=== PATIENT | female | born 1950 | race African-American/Black ===

== ENCOUNTER 2019-05-21 21:22 | Inpatient (IN) | payer MEDICARE, MEDICAID ==
[~2019-05-21] VITALS: Ht 152.4 cm; Wt 51.3 kg
--- NOTE | 2019-05-21 21:40 | NUR ---
ED Nurse Note: ERMD at bedside
[2019-05-21] MEDS ORDERED: Piperacillin/Tazobactam 3.375 GM in NS 110 ML IVPB ONE (22:00)
[2019-05-21] MEDS ORDERED: Vancomycin 1 GM in NS 275 ML IV ONE (22:00)
[2019-05-21] MEDS ORDERED: Bacitracin Oint UD TOPIC ONE (22:00)
[2019-05-21] MEDS: Sodium Chloride 550 ML IV SCH (22:05)
[2019-05-21 22:25] LABS: HEMATOCRIT 31.2 % (37.0-47.0); HEMOGLOBIN 9.8 G/DL (12.0-16.0); MEAN CORPUSCULAR VOLUME 100 FL (80-99); PLATELET COUNT 41 K/UL (150-450); RED BLOOD COUNT 3.11 M/UL (4.20-5.40); RED CELL DISTRIBUTION WIDTH 17.3 % (11.6-14.8); WHITE BLOOD COUNT 3.5 K/UL (4.8-10.8)
[2019-05-21 22:28] LABS: ANION GAP 9 mmol/L (5-15); BLOOD UREA NITROGEN 9 mg/dL (7-18); CALCIUM 8.7 MG/DL (8.5-10.1); CARBON DIOXIDE 26 MMOL/L (21-32); CHLORIDE 102 MMOL/L (98-107); CREATININE 0.7 MG/DL (0.55-1.30); POTASSIUM 3.5 MMOL/L (3.5-5.1); SODIUM 137 MMOL/L (136-145)
[2019-05-21 22:29] LABS: INR 1.2 (0.9-1.1)
[2019-05-21 22:40] LABS: ALANINE AMINOTRANSFERASE 35 U/L (12-78); ALBUMIN 2.9 G/DL (3.4-5.0); ALBUMIN/GLOBULIN RATIO 0.6 (1.0-2.7); ALKALINE PHOSPHATASE 73 U/L (46-116); ASPARTATE AMINO TRANSFERASE 51 U/L (15-37); BILIRUBIN,TOTAL 2.8 MG/DL (0.2-1.0); CKMB < 0.5 NG/ML (0.0-3.6); CREATINE KINASE 20 U/L (26-308); PHOSPHORUS 2.8 MG/DL (2.5-4.9)
[2019-05-21 22:41] LABS: BILIRUBIN,DIRECT 2.1 MG/DL (0.0-0.3)
--- NOTE | 2019-05-21 22:51 | Emergency Room Report ---
History of Present Illness General Chief Complaint: Lower Extremity Injury Source: Patient Present Illness HPI Patient is brought her daughter. She was seen by her doctor yesterday. She was told that she has a ulcer and infection in her lower extremity. The patient claims she banged herself a week ago. Her physician believes that happened longer than that. The patient denies most symptoms at this time. She has a history of alcohol abuse. She says that she last was drinking yesterday. She says she drinks beer. She denies fevers or chills. She denies any pain in the area. She denies pain. No sore throat, chest pain, palpitations, nausea, vomiting, diarrhea, dysuria, abdominal pain, shortness of breath, depression, anxiety, visual changes, dizziness, headache. The patient has a history of arthritis and hypertension but is not taking any medication. Allergies: Coded Allergies: No Known Allergies (Unverified , 05/21/19) Patient History Past Medical History: see triage record Social History: Reports: alcohol use; Denies: smoking Social History Narrative born Emmanuelle Last Menstrual Period: na Reviewed Nursing Documentation: PMH: Agreed; PSxH: Agreed Nursing Documentation-PMH Past Medical History: No History, Except For Hx Cardiac Problems: No - Arthritis Hx Hypertension: Yes Review of Systems All Other Systems: negative except mentioned in HPI Physical Exam Vital Signs Date Time Temp Pulse Resp B/P (MAP) Pulse Ox O2 Delivery O2 Flow Rate FiO2 05/21/19 21:31 98.1 106 18 184/98 (126) 97 Room Air Sp02 EP Interpretation: reviewed, normal General Appearance: non-toxic, thin, Chronically Ill Head: atraumatic Eyes: bilateral eye normal inspection, bilateral eye PERRL ENT: moist mucus membranes Neck: supple Respiratory: lungs clear, normal breath sounds Cardiovascular #1: regular rate, rhythm, edema - 2+ pitting edema bilaterally Cardiovascular #2: 2+ radial (R) Gastrointestinal: normal inspection, non tender, no mass, non-distended, decreased bowel sounds Genitourinary: no CVA tenderness Musculoskeletal: back normal, normal range of motion, no calf tenderness, gait/ station normal Neurologic: alert, oriented - X2, DTRs symmetric, sensory intact, cerebellar normal, speech normal Psychiatric: mood/affect normal Skin: other - Erythema bilateral lower extremities worse on the left-hand side with an abrasion Medical Decision Making Diagnostic Impression: Primary Impression: Cellulitis Qualified Codes: L03.119 - Cellulitis of unspecified part of limb Additional Impressions: Sepsis Qualified Codes: A41.9 - Sepsis, unspecified organism Protein calorie malnutrition Qualified Codes: E43 - Unspecified severe protein-calorie malnutrition Hypomagnesemia Elevated INR Alcohol abuse ER Course Patient presents with lesions in her lower extremities and edema. Differential includes cellulitis, sepsis, malnutrition, renal failure, right-sided heart failure amongst others. We need to exclude acute myocardial infarction. Evaluation with EKG, chest x-ray and labs including blood cultures and lactic acid. Patient given IV hydration however due to total body sodium overload volume replacement needs to be observed judiciously. Antibiotics indicated. Suspect sequela of alcohol abuse. Patient needs to be observed for possible alcohol withdrawal. EKG without injury. Chest x-ray no infiltrate. Normal white count. Anemia. Variable liver function test abnormalities. Elevated INR. Blood alcohol positive. SEPSIS RE-EVALUATION: Called for elevated lactate. Patient with fluid overload. Liver disease. Antibiotics already ordered. Initial bolus and continued IV hydration is in process. I, Johnny Kirkland MD, Performed the Sepsis Re-evaluation at 22:50. Repeat lactate normal. Vitamin K ordered for elevated INR. Magnesium ordered. Patient improved but needing admission for cellulitis and sepsis with liver dysfunction. Laboratory Tests Test 05/21/19 21:40 05/21/19 23:45 White Blood Count 3.5 K/UL (4.8-10.8) L Red Blood Count 3.11 M/UL (4.20-5.40) L Hemoglobin 9.8 G/DL (12.0-16.0) L Hematocrit 31.2 % (37.0-47.0) L Mean Corpuscular Volume 100 FL (80-99) H Mean Corpuscular Hemoglobin 31.6 PG (27.0-31.0) H Mean Corpuscular Hemoglobin Concent 31.5 G/DL (32.0-36.0) L Red Cell Distribution Width 17.3 % (11.6-14.8) H Platelet Count 41 K/UL (150-450) L Mean Platelet Volume 13.0 FL (6.5-10.1) H Neutrophils (%) (Auto) % (45.0-75.0) Lymphocytes (%) (Auto) % (20.0-45.0) Monocytes (%) (Auto) % (1.0-10.0) Eosinophils (%) (Auto) % (0.0-3.0) Basophils (%) (Auto) % (0.0-2.0) Differential Total Cells Counted 100 Neutrophils % (Manual) 62 % (45-75) Lymphocytes % (Manual) 20 % (20-45) Monocytes % (Manual) 16 % (1-10) H Eosinophils % (Manual) 1 % (0-3) Basophils % (Manual) 1 % (0-2) Band Neutrophils 0 % (0-8) Platelet Estimate Decreased L Platelet Morphology Normal Polychromasia 1+ Hypochromasia 1+ Anisocytosis 1+ Macrocytosis 2+ Prothrombin Time 12.3 SEC (9.30-11.50) H Prothrombin Time INR 1.2 (0.9-1.1) H Activated Partial Thromboplast Time 29 SEC (23-33) Sodium Level 137 MMOL/L (136-145) Potassium Level 3.5 MMOL/L (3.5-5.1) Chloride Level 102 MMOL/L (98-107) Carbon Dioxide Level 26 MMOL/L (21-32) Anion Gap 9 mmol/L (5-15) Blood Urea Nitrogen 9 mg/dL (7-18) Creatinine 0.7 MG/DL (0.55-1.30) Estimate Glomerular Filtration Rate > 60 mL/min (>60) Glucose Level 98 MG/DL (74-106) Lactic Acid Level 2.40 mmol/L (0.4-2.0) H 1.70 mmol/L (0.66-2.22) Calcium Level 8.7 MG/DL (8.5-10.1) Phosphorus Level 2.8 MG/DL (2.5-4.9) Magnesium Level 1.6 MG/DL (1.8-2.4) L Total Bilirubin 2.8 MG/DL (0.2-1.0) H Direct Bilirubin 2.1 MG/DL (0.0-0.3) H Aspartate Amino Transferase (AST) 51 U/L (15-37) H Alanine Aminotransferase (ALT) 35 U/L (12-78) Alkaline Phosphatase 73 U/L (46-116) Total Creatine Kinase 20 U/L (26-308) L Creatine Kinase MB < 0.5 NG/ML (0.0-3.6) Creatine Kinase MB Relative Index 2.5 Troponin I 0.000 ng/mL (0.000-0.056) Pro-B-Type Natriuretic Peptide 589 pg/mL (0-125) H Total Protein 7.9 G/DL (6.4-8.2) Albumin 2.9 G/DL (3.4-5.0) L Globulin 5.0 g/dL Albumin/Globulin Ratio 0.6 (1.0-2.7) L Lipase 175 U/L (73-393) Serum Alcohol 10 mg/dL EKG Diagnostic Results Rate: tachycardiac Rhythm: NSR ST Segments: no acute changes - LAD, prolonged QT 497 ms Rhythm Strip Diag. Results EP Interpretation: yes Rhythm: no PVC's, no ectopy, other - This tachycardia Chest X-Ray Diagnostic Results Chest X-Ray Diagnostic Results : Chest X-Ray Ordered: Yes # of Views/Limited/Complete: 1 View Indication: Other EP Interpretation: Yes Interpretation: no consolidation, no effusion, no pneumothorax, other - Noted calcifications Impression: No acute disease Electronically Signed by: Electronically signed by Johnny Kirkland MD Last Vital Signs Date Time Temp Pulse Resp B/P (MAP) Pulse Ox O2 Delivery O2 Flow Rate FiO2 05/22/19 08:01 85 05/22/19 08:00 97.5 18 153/67 (95) 98 05/22/19 03:36 Room Air Status: improved Disposition: ADMITTED INPATIENT Condition: Serious Referrals: NON PHYSICIAN (PCP) Johnny Kirkland MD May 21, 2019 22:51
--- NOTE | 2019-05-21 23:59 | NUR ---
ED Nurse Note: Patient walked in to ER c/o lower leg pain. Stated hited it the other day, and ever since has pain, and open wound on left lower leg. Patient presented calm, cooperative, AAO x4, VSS at this time.
[2019-05-22] MEDS ORDERED: Phytonadione 10 mg/mL 1ml amp SUBQ ONE (00:45)
[2019-05-22] MEDS: Sodium Chloride 550 ML IV SCH (01:55)
--- NOTE | 2019-05-22 02:30 | NUR ---
ED Nurse Note: Patient was admited to Tele due to cellulitis of lower extremities. Patient was transfered to the unit via gurney by ACLS protocol. Patient took all belongings. AAO x4, VSS at this time.
[2019-05-22 03:00] VITALS: BP 148/82
--- NOTE | 2019-05-22 03:00 | NUR ---
NURSE NOTES: Pt arrived on unit via gurney from ER. Got report from Jade ALBERTS. Initial assessment done. Pt in stable condition.Pt fully oriented. Pt ambulatory but weak SBA needed. Pt continent and able to make needs known. Pt here for bilateral lower extremity cellulitis. Denies any pain. Denies any n/v or SOB. Pt has left lower leg wound picture taken. VSS T:97 HR:86 R:17 BP:148/82 O2:97% on room air. Pt has R AC 20g iv patent. injection mold tooling technician placed on pt running Sinus Rhythm on the monitor. Belongings list verified. Pt resting in bed comfortably. Bed in low and locked position, call light within reach, bedside table within reach. Continue to monitor. Paged Dr. Law for orders awaiting response.
[2019-05-22 03:11] LABS: APPEARANCE,URINE CLEAR; BILIRUBIN, URINE NEGATIVE (NEGATIVE); GLUCOSE, URINE (UA) NEGATIVE (NEGATIVE); KETONES,URINE NEGATIVE (NEGATIVE); LEUKOCYTE ESTERASE ,URINE 1+ (NEGATIVE); NITRITE,URINE NEGATIVE (NEGATIVE); PH,URINE 6.5 (4.5-8.0); PROTEIN,URINE NEGATIVE (NEGATIVE); UROBILINOGEN,URINE 4 MG/DL (0.0-1.0)
[2019-05-22 03:12] LABS: COLOR,URINE YELLOW
--- NOTE | 2019-05-22 07:30 | NUR ---
NURSE NOTES: Received report from LEXUS Sánchez. Patient is A/Ox4. Breathing even and unlabored in RA. No complain of pain in BLE, complains of discomfort in IV site, no swelling noted. No s/s of acute distress. Bed on lowest position, call light within reach. Will continue plan of care.
--- NOTE | 2019-05-22 07:45 | NUR ---
HAND-OFF: Report given to Molly ALBERTS.
[2019-05-22 08:00] VITALS: BP 153/67
[2019-05-22] MEDS ORDERED: Heparin 5000 units/ml inj SUBQ SCH (09:00)
[2019-05-22 09:07] LABS: HEMATOCRIT 25.9 % (37.0-47.0); HEMOGLOBIN 8.9 G/DL (12.0-16.0); MEAN CORPUSCULAR VOLUME 94 FL (80-99); PLATELET COUNT 34 K/UL (150-450); RED BLOOD COUNT 2.75 M/UL (4.20-5.40); RED CELL DISTRIBUTION WIDTH 16.1 % (11.6-14.8); WHITE BLOOD COUNT 2.9 K/UL (4.8-10.8)
[2019-05-22 09:19] LABS: ANION GAP 5 mmol/L (5-15); BLOOD UREA NITROGEN 8 mg/dL (7-18); CALCIUM 8.3 MG/DL (8.5-10.1); CARBON DIOXIDE 27 MMOL/L (21-32); CHLORIDE 108 MMOL/L (98-107); CREATININE 0.7 MG/DL (0.55-1.30); POTASSIUM 3.6 MMOL/L (3.5-5.1); SODIUM 140 MMOL/L (136-145)
[2019-05-22 09:21] LABS: PHOSPHORUS 3.6 MG/DL (2.5-4.9)
[2019-05-22] MEDS: Vancomycin 500mg/D5W 110ml IVPB SCH ×4 (10:52→23:31)
--- NOTE | 2019-05-22 11:24 | NUR ---
NURSE NOTES: Informed Dr Law regarding the pt's WBC 2.9, platelet 34, Hgb 8.9, Hct 25.9
--- NOTE | 2019-05-22 11:32 | Diagnostic Imaging Report ---
Indication: Chest pain Comparison: None A single view chest radiograph was obtained. Findings: No definite infiltrate or pulmonary vascular congestion identified. The heart is borderline enlarged. The aorta is mildly calcified consistent with atherosclerotic vascular disease. The bones are osteopenic. Impression: No acute disease
[2019-05-22 12:00] VITALS: BP 138/64
--- NOTE | 2019-05-22 13:10 | NUR ---
CASE MANAGEMENT:REVIEW 69 YR OLD FEMALE WALKED IN TO ER CC: LLE OPEN WOUND SI: SEPSIS. CELLULITIS. ALCOHOL ABUSE 98.1 106 18 184/98 97% ON RA PLT-41 MAG-1.6 TBILI/DBILI+2.8/2.1 IS: IV VANCOMYCIN IV ZOSYN 1L NS BOLUS 500CC NS BOLUS CHEST XRAY WOUND CX BLOOD CX : TO TELEMETRY DCP: FROM HOME
[2019-05-22 16:00] VITALS: BP 155/72
--- NOTE | 2019-05-22 19:30 | History and Physical Report ---
DATE OF ADMISSION: 05/21/2019 CHIEF COMPLAINT: Left lower extremity redness and ulcer. HISTORY OF PRESENT ILLNESS: This is a 69 years old female with past medical history significant for hypertension, who presented to the emergency department due to the complaint about the left lower extremity ulcer and infected. The patient stated while she was in the kitchen walking and she struck her foot and after that becomes red, tender, able to walk, but had difficulty with ambulation. Shortly after initial evaluation in the emergency department, the patient was admitted to the hospital with acute cellulitis of the left lower extremity. PAST MEDICAL HISTORY: Significant for hypertension, history is very limited secondary to the patient's status. She is demented, poor historian. History is taken from the patient, unable to reach the family to get a better history at this time. PAST SURGICAL HISTORY: Denies. MEDICATIONS: At home, unknown. ALLERGIES: No known drug allergies. SOCIAL HISTORY: Denies any smoking, alcohol, or drugs. FAMILY HISTORY: Noncontributory. REVIEW OF SYSTEMS: Mostly as above. Denies any fever or chills. Denies any nausea or vomiting. Denies any hemoptysis or hematochezia. Denies any bright red blood per rectum. Denies any loss of consciousness. Denies any double vision. Denies any fall or head trauma. PHYSICAL EXAMINATION: VITAL SIGNS: On admission from the ER, temperature 98.1, pulse of 106, respirations 18, and blood pressure 184/98. GENERAL: The patient is awake, responsive, in no acute distress. HEENT: Head and neck examination, pupils are reactive to light. Extraocular movements are intact. NECK: Supple. No JVD. LUNGS: Good air entry. No wheezing or rales. HEART: S1, S2. Distant heart sounds. No murmurs or gallops. ABDOMEN: Soft, nondistended, nontender. Positive bowel sounds. EXTREMITIES: No cyanosis, clubbing, or edema. The patient has left lower extremity redness, ulceration on the medial aspect of the leg. Mild tender to touch around the ulcer. RECTAL: Refused and deferred. GENITOURINARY: Refused and deferred. PSYCHIATRIC: Mood and affect is intact. LABORATORY AND DIAGNOSTIC DATA: Laboratory on admission from the emergency department, sodium 134, potassium 3.5, chloride 102, bicarbonate 26, BUN 9, creatinine 0.7, GFR is 60, glucose 98, magnesium is 1.6. Total bilirubin of 2.8 and direct bilirubin of the 2.1. AST is 51, ALT of 35, and alkaline phosphatase 73. BNP of 589. Lipase is 187. PT of 12, INR 1.2, and PTT of 29. Urine drug screen is negative. Alcohol level is negative. Urinalysis, +1 leukocytes, otherwise negative. The patient had a chest x-ray, no acute process. ASSESSMENT: 1. Cellulitis of the left lower extremity with ulceration. 2. Hypertension. 3. Abnormal liver functions. 4. Pancytopenia with severe thrombocytopenia. 5. Severe protein-calorie malnutrition. PLAN: Admit the patient to monitored unit. We will follow up with the laboratory in the morning. Code status, Full Code. magnesium IV. DVT prophylaxis, SCD. Broad-spectrum antibiotic with vancomycin. Follow up with the GI consultation with Dr. Jeremy Ramos and we will follow up with the cultures. Italo Law M.D. DR: SERJIO JOB#: [id number] CC:
--- NOTE | 2019-05-22 19:37 | NUR ---
HAND-OFF: Report given to LEXUS Taylor. Pt in stable condition. Endorsed plan of care.
[2019-05-22] MEDS: HYDROcodone/Acetamin 5/325 tab ORAL PRN (19:50)
[2019-05-22 20:00] VITALS: BP 128/68
--- NOTE | 2019-05-22 20:27 | NUR ---
NURSE NOTES: Report received from Molly LABERTS. Patient is observed in bed, awake, alert, oriented, and able to make needs known. Respiratory even and unlabored. Patient states relief of pain. IV site is asymptomatic, patent, and intact. Bed is in lowest position with side rails up x2 and brakes are engaged. Bed alarm is on. Encouraged patient to use call light when in need of assistance, pt verbalized understanding. Will continue to monitor.
--- NOTE | 2019-05-23 | NUR ---
NURSE NOTES: Patient is asleep but arousable by voice. Denies pain at this time. VSS. Will continue to monitor.
[2019-05-23 00:11] VITALS: BP 141/67
[2019-05-23 04:00] VITALS: BP 110/52
--- NOTE | 2019-05-23 07:00 | NUR ---
HAND-OFF: Report given to Molly ALBERTS. Patient is in stable condition. Endorsed plan of care.
[2019-05-23 07:16] LABS: HEMATOCRIT 25.5 % (37.0-47.0); HEMOGLOBIN 8.5 G/DL (12.0-16.0); MEAN CORPUSCULAR VOLUME 95 FL (80-99); PLATELET COUNT 27 K/UL (150-450); RED BLOOD COUNT 2.67 M/UL (4.20-5.40); RED CELL DISTRIBUTION WIDTH 16.3 % (11.6-14.8); WHITE BLOOD COUNT 2.7 K/UL (4.8-10.8)
--- NOTE | 2019-05-23 07:33 | NUR ---
NURSE NOTES: Received report from LEXUS Taylor. Pt is awake, A/Ox4. Pt denies any pain at the moment, no s/sx of acute distress. Pt on NPO for abd u/s this AM. Stand-by assist when pt went to restroom. Breathing even and unlabored in RA. Bed on lowest position, call light within reach. Will continue plan of care.
[2019-05-23 07:46] LABS: ANION GAP 6 mmol/L (5-15); BLOOD UREA NITROGEN 10 mg/dL (7-18); CALCIUM 8.1 MG/DL (8.5-10.1); CARBON DIOXIDE 26 MMOL/L (21-32); CHLORIDE 108 MMOL/L (98-107); CREATININE 0.6 MG/DL (0.55-1.30); PHOSPHORUS 2.6 MG/DL (2.5-4.9); POTASSIUM 3.7 MMOL/L (3.5-5.1); SODIUM 140 MMOL/L (136-145)
[2019-05-23 08:00] VITALS: BP 132/56
[2019-05-23] MEDS: Aspirin EC 81mg tab ORAL SCH (09:28)
--- NOTE | 2019-05-23 09:37 | NUR ---
NURSE NOTES: Reported labs to Dr Law. wbc 2.7, platelet 27, hgb 8.5, hct 25.5, mg 1.7 ordered Mg Oxide 400mg PO daily.
[2019-05-23] MEDS: Magnesium Oxide 400mg tab ORAL SCH (10:43)
[2019-05-23] MEDS: Vancomycin 500mg/D5W 110ml IVPB SCH ×2 (10:44)
--- NOTE | 2019-05-23 11:13 | Diagnostic Imaging Report ---
EXAM: US Abdomen Complete CLINICAL HISTORY: ABD TEND TECHNIQUE: Real-time ultrasound of the abdomen with image documentation. COMPARISON: No relevant prior studies available. FINDINGS: Liver: Dense liver may be fatty. Liver measures 12.67 cm. No intrahepatic bile duct dilation. Gallbladder: Gallbladder with sludge and stones. Gallbladder wall is normal 1.14 mm. Common bile duct: CBD 3.29 mm. No stones. No dilation. Pancreas: Pancreas tail not seen due to bowel gas. Kidneys: 2.52 x 1.96 x 2.83 cm anechoic left renal cyst. Right kidney measures 10.56 x 4.58 x 5.03 cm. Prominent column for Reji versus duplex collecting system. Left kidney measures 11.4 x 5.24 x 4.21 cm. No stones. Spleen: Spleen measures 9.9 cm. Aorta: Aorta not well-seen due to bowel gas. Inferior vena cava: Unremarkable. IMPRESSION: 1. Dense liver may be fatty. 2. Gallbladder with sludge and stones. No acute cholecystitis. 3. 2.52 x 1.96 x 2.83 cm anechoic left renal cyst.
[2019-05-23 12:00] VITALS: BP 135/59
--- NOTE | 2019-05-23 14:02 | Internal Med Progress Note ---
Subjective Date of Service: May 23, 2019 Physician Name Ty Moulton Attending Physician Italo Law MD Current Medications Medications (Trade) Dose Ordered Sig/Surinder Route PRN Reason Start Time Stop Time Status Last Admin Dose Admin Acetaminophen (Tylenol) 650 mg Q6H PRN ORAL Mild Pain/Temp > 100.5 05/22/19 07:00 06/21/19 06:59 Acetaminophen/ Hydrocodone Bitart ([place] 5/325) 1 tab Q6H PRN ORAL PAIN 4-10 05/22/19 07:00 05/29/19 06:59 05/22/19 19:50 Amlodipine Besylate (Norvasc) 2.5 mg DAILY ORAL 05/23/19 09:00 06/22/19 08:59 05/23/19 09:28 Aspirin (Ecotrin) 81 mg DAILY ORAL 05/23/19 09:00 06/22/19 08:59 05/23/19 09:28 Magnesium Oxide (Mag-Ox 400mg) 400 mg DAILY ORAL 05/23/19 10:30 06/22/19 10:29 05/23/19 10:43 Ondansetron HCl (Zofran) 4 mg Q4H PRN IVP Nausea & Vomiting 05/22/19 07:00 06/21/19 06:59 Temazepam (RestoriL) 7.5 mg HSPRN PRN ORAL Insomnia 05/22/19 15:45 05/29/19 15:44 Vancomycin HCl (Vanco rx to dose) 1 ea DAILY PRN MISC Per rx protocol 05/22/19 07:00 06/21/19 06:59 Vancomycin HCl 500 mg/Dextrose 110 ml @ 110 mls/hr Q12HR@1100,2300 IVPB 05/22/19 11:00 05/27/19 10:59 05/23/19 10:44 Allergies: Coded Allergies: No Known Allergies (Unverified , 05/21/19) ROS Limited/Unobtainable: Yes Subjective 69 YO F admitted with left let swelling and redness. Now Cellulitis left leg with ulcer. Cover for Int Darren-DR Law Objective Last Vital Signs Date Time Temp Pulse Resp B/P (MAP) Pulse Ox O2 Delivery O2 Flow Rate FiO2 05/23/19 09:28 76 132/56 05/23/19 08:08 Room Air 05/23/19 08:00 98.1 16 99 Laboratory Tests Test 05/23/19 06:50 White Blood Count 2.7 K/UL (4.8-10.8) L Red Blood Count 2.67 M/UL (4.20-5.40) L Hemoglobin 8.5 G/DL (12.0-16.0) L Hematocrit 25.5 % (37.0-47.0) L Mean Corpuscular Volume 95 FL (80-99) Mean Corpuscular Hemoglobin 31.9 PG (27.0-31.0) H Mean Corpuscular Hemoglobin Concent 33.4 G/DL (32.0-36.0) Red Cell Distribution Width 16.3 % (11.6-14.8) H Platelet Count 27 K/UL (150-450) L Mean Platelet Volume 9.0 FL (6.5-10.1) Neutrophils (%) (Auto) % (45.0-75.0) Lymphocytes (%) (Auto) % (20.0-45.0) Monocytes (%) (Auto) % (1.0-10.0) Eosinophils (%) (Auto) % (0.0-3.0) Basophils (%) (Auto) % (0.0-2.0) Differential Total Cells Counted 100 Neutrophils % (Manual) 61 % (45-75) Lymphocytes % (Manual) 32 % (20-45) Monocytes % (Manual) 7 % (1-10) Eosinophils % (Manual) 0 % (0-3) Basophils % (Manual) 0 % (0-2) Band Neutrophils 0 % (0-8) Platelet Estimate Decreased L Platelet Morphology Normal Hypochromasia 1+ Anisocytosis 1+ Sodium Level 140 MMOL/L (136-145) Potassium Level 3.7 MMOL/L (3.5-5.1) Chloride Level 108 MMOL/L (98-107) H Carbon Dioxide Level 26 MMOL/L (21-32) Anion Gap 6 mmol/L (5-15) Blood Urea Nitrogen 10 mg/dL (7-18) Creatinine 0.6 MG/DL (0.55-1.30) Estimat Glomerular Filtration Rate > 60 mL/min (>60) Glucose Level 96 MG/DL (74-106) Calcium Level 8.1 MG/DL (8.5-10.1) L Phosphorus Level 2.6 MG/DL (2.5-4.9) Magnesium Level 1.7 MG/DL (1.8-2.4) L Microbiology Date/Time Source Procedure Growth Status 05/21/19 21:56 Blood Blood Culture - Preliminary NO GROWTH AFTER 24 HOURS Resulted 05/21/19 21:40 Blood Blood Culture - Preliminary NO GROWTH AFTER 24 HOURS Resulted 05/22/19 06:00 Leg Left Gram Stain - Final Resulted 05/22/19 06:00 Leg Left Wound Culture Pending Resulted Intake and Output 05/22/19 05/23/19 18:59 06:59 Intake Total 480 ml Balance 480 ml Intake Oral 480 ml # Voids 4 2 # Bowel Movements 1 Objective PHYSICAL EXAMINATION: GENERAL: The patient is awake, responsive, in no acute distress. HEENT: Head and neck examination, pupils are reactive to light. Extraocular movements are intact. NECK: Supple. No JVD. LUNGS: Good air entry. No wheezing or rales. HEART: S1, S2. Distant heart sounds. No murmurs or gallops. ABDOMEN: Soft, nondistended, nontender. Positive bowel sounds. EXTREMITIES: No cyanosis, clubbing, or edema. The patient has left lower extremity redness, ulceration on the medial aspect of the leg. Mild tender to touch around the ulcer. RECTAL: Refused and deferred. GENITOURINARY: Refused and deferred. PSYCHIATRIC: Mood and affect is intact. Assessment/Plan Assessment/Plan ASSESSMENT: 1. Cellulitis of the left lower extremity with ulceration. 2. Hypertension. 3. Abnormal liver functions. 4. Pancytopenia with severe thrombocytopenia. 5. Severe protein-calorie malnutrition. 6. Alcohol dependence/withdrawal PLAN: 1. Admit the patient to monitored unit. 2. Code status, Full Code. DVT prophylaxis, SCD. 3. antibiotic = vancomycin. Follow 4. GI consultation with = Ty Olson MD May 23, 2019 14:02
[2019-05-23 16:00] VITALS: BP 132/66
--- NOTE | 2019-05-23 18:00 | Consultation ---
DATE OF CONSULTATION: 05/23/2019 CONSULTING PHYSICIAN: Inder De La Cruz M.D. REFERRING PHYSICIAN: Italo Law M.D. CHIEF COMPLAINT: Anemia and abnormal liver function tests. HISTORY OF PRESENT ILLNESS: The patient is a poor historian, 69-year-old female, mainly admitted to the hospital after she had foot infection, but the patient was anemic, pancytopenic, and also had abnormal liver function tests. GI consultation was requested for further evaluation. PAST MEDICAL HISTORY: Hypertension. ALLERGIES: No known drug allergies. MEDICATIONS: Currently on acetaminophen, amlodipine, aspirin, hydrocodone, and Zofran. FAMILY HISTORY: Noncontributory. SOCIAL HISTORY: The patient denies any tobacco, alcohol, or IV drug abuse. REVIEW OF SYSTEMS: Limited. The patient is a poor historian. PHYSICAL EXAMINATION: VITAL SIGNS: Temperature 97.9, pulse 84, respiration 18, and blood pressure is 110/52. HEENT: Normocephalic and atraumatic. Pale conjunctivae. NECK: Supple. No evidence of obvious lymphadenopathy. CARDIOVASCULAR: Regular rhythm. Plus S1, S2. LUNGS: Decreased breath sounds bilaterally based on the supine exam. ABDOMEN: Soft, nontender. No rebound. No guarding. No peritoneal sign. EXTREMITIES: No cyanosis. No clubbing. LABORATORY DATA: White count is 2.9, hemoglobin 8.9, hematocrit 25, and platelet count is 34,000. Chem-7, sodium 140, potassium 3.6, BUN is 8, creatinine 0.7. Liver function, her total bilirubin is 2.8, direct is 2.1, AST of 51, ALT of 35, and alkaline phosphatase of 73. ASSESSMENT: This is a 69-year-old female admitted to the hospital with foot cellulitis, now has evidence of severe pancytopenia with platelet count of 34,000, anemia, and mild abnormal liver function tests. PLAN: The patient most probably would need wound care for her cellulitis, currently on antibiotics, and needs Hematology/Oncology consultation for pancytopenia. Meanwhile, we are going to order workup for her anemia including iron panel, B12, folate, and stool for OB. In terms of abnormal liver function tests, this is relatively mild, mostly elevated bilirubin. We will repeat the laboratories for tomorrow and also order an abdominal ultrasound. I want to thank, Dr. Italo Law, for this kind referral. Inder De La Cruz M.D. DR: Destinee JOB#: [id number] CC: Italo Law M.D.; Fax#: [phone]
--- NOTE | 2019-05-23 19:50 | NUR ---
HAND-OFF: Report given to LEXUS Bishop. Pt in stable condition. Endorsed plan of care.
--- NOTE | 2019-05-23 19:54 | NUR ---
NURSE NOTES: Received report from Molly Alvarado RN. Pt was resting in the bed w.o any acute distress. Denies any pain. AO x4 calm and comfortable. Bed is on the lowest position, rails are up x3, call light is within reach. Will follow the plan of care. Addendum: 05/24/19 at 0010 by ISAIAS EVANS RN AM nurse made aware about abnormal labs.
[2019-05-23 20:00] VITALS: BP 148/70
[2019-05-23] MEDS: HYDROcodone/Acetamin 5/325 tab ORAL PRN (21:59)
[2019-05-23] MEDS: Vancomycin 750 MG in NS 275 ML IVPB SCH (23:50)
[2019-05-24] VITALS: BP 144/67
[2019-05-24 04:00] VITALS: BP 138/93
--- NOTE | 2019-05-24 07:24 | NUR ---
HAND-OFF: Report given to Rudolph ALBERTS.
[2019-05-24 08:00] VITALS: BP 133/76
[2019-05-24 08:38] LABS: HEMATOCRIT 25.8 % (37.0-47.0); HEMOGLOBIN 8.8 G/DL (12.0-16.0); MEAN CORPUSCULAR VOLUME 95 FL (80-99); PLATELET COUNT 34 K/UL (150-450); RED BLOOD COUNT 2.72 M/UL (4.20-5.40); RED CELL DISTRIBUTION WIDTH 16.5 % (11.6-14.8); WHITE BLOOD COUNT 3.5 K/UL (4.8-10.8)
--- NOTE | 2019-05-24 08:40 | General Progress Note ---
Assessment/Plan Assessment/Plan: anemia pancytopenia fatty liver gallstones cellulitis abx per id fu labs wound care anemia work up in progress Subjective Allergies: Coded Allergies: No Known Allergies (Unverified , 05/21/19) Objective Last 24 Hour Vital Signs Date Time Temp Pulse Resp B/P (MAP) Pulse Ox O2 Delivery O2 Flow Rate FiO2 05/24/19 04:00 98.2 79 20 138/93 (108) 91 05/24/19 04:00 72 05/24/19 00:00 98.2 94 20 144/67 (92) 96 05/24/19 00:00 77 05/23/19 21:00 Room Air 05/23/19 20:00 97.8 85 20 148/70 (96) 96 05/23/19 20:00 87 05/23/19 16:25 76 05/23/19 16:00 98.1 76 16 132/66 (88) 99 05/23/19 12:00 98.2 74 18 135/59 (84) 99 05/23/19 11:37 75 05/23/19 09:28 76 132/56 Intake and Output 05/23/19 05/24/19 19:00 07:00 Intake Total 720 ml Balance 720 ml Intake Oral 720 ml # Voids 4 2 Laboratory Tests 05/23/19 21:50: Vancomycin Level Trough 9.0 05/24/19 07:45: White Blood Count [Pending], Red Blood Count [Pending], Hemoglobin [Pending], Hematocrit [Pending], Mean Corpuscular Volume [Pending], Mean Corpuscular Hemoglobin [Pending], Mean Corpuscular Hemoglobin Concent [Pending], Red Cell Distribution Width [Pending], Platelet Count [Pending], Mean Platelet Volume [ Pending], Neutrophils (%) (Auto) [Pending], Lymphocytes (%) (Auto) [Pending], Monocytes (%) (Auto) [Pending], Eosinophils (%) (Auto) [Pending], Basophils (%) (Auto) [Pending], Sodium Level [Pending], Potassium Level [Pending], Chloride Level [Pending], Carbon Dioxide Level [Pending], Blood Urea Nitrogen [Pending], Creatinine [Pending], Estimat Glomerular Filtration Rate [Pending], Glucose Level [Pending], Calcium Level [Pending], Iron Level [Pending], Unsaturated Iron Binding [Pending], Total Bilirubin [Pending], Aspartate Amino Transf (AST/ SGOT) [Pending], Alanine Aminotransferase (ALT/SGPT) [Pending], Alkaline Phosphatase [Pending], Total Protein [Pending], Albumin [Pending], Globulin [ Pending], Vitamin B12 Level [Pending], Folate [Pending] Height (Feet): 5 Height (Inches): 0.00 Weight (Pounds): 100 General Appearance: alert EENT: normal ENT inspection Neck: supple Cardiovascular: normal rate Respiratory/Chest: decreased breath sounds Abdomen: normal bowel sounds, non tender, soft Extremities: non-tender Inder De La Cruz MD May 24, 2019 08:40
[2019-05-24] MEDS: Aspirin EC 81mg tab ORAL SCH (09:00)
[2019-05-24 09:02] LABS: ALANINE AMINOTRANSFERASE 24 U/L (12-78); ALBUMIN/GLOBULIN RATIO 0.5 (1.0-2.7); ALKALINE PHOSPHATASE 58 U/L (46-116); ANION GAP 6 mmol/L (5-15); ASPARTATE AMINO TRANSFERASE 34 U/L (15-37); BILIRUBIN,TOTAL 2.1 MG/DL (0.2-1.0); BLOOD UREA NITROGEN 10 mg/dL (7-18); CALCIUM 8.1 MG/DL (8.5-10.1); CARBON DIOXIDE 25 MMOL/L (21-32); CHLORIDE 107 MMOL/L (98-107); CREATININE 0.6 MG/DL (0.55-1.30); POTASSIUM 3.4 MMOL/L (3.5-5.1); SODIUM 138 MMOL/L (136-145)
[2019-05-24 09:05] LABS: BILIRUBIN,DIRECT 1.4 MG/DL (0.0-0.3)
[2019-05-24] MEDS: Magnesium Oxide 400mg tab ORAL SCH (09:25)
[2019-05-24 09:30] LABS: % IRON SATURATION 52 % (15-50); IRON 77 ug/dL (50-175); TOTAL IRON BINDING CAPACITY 148 ug/dL (250-450)
[2019-05-24] MEDS: Vancomycin 750 MG in NS 275 ML IVPB SCH ×2 (11:16→22:56)
[2019-05-24 12:00] VITALS: BP 139/78
--- NOTE | 2019-05-24 13:24 | Internal Med Progress Note ---
Subjective Date of Service: May 24, 2019 Physician Name Ty Moulton Attending Physician Italo Law MD Current Medications Medications (Trade) Dose Ordered Sig/Surinder Route PRN Reason Start Time Stop Time Status Last Admin Dose Admin Acetaminophen (Tylenol) 650 mg Q6H PRN ORAL Mild Pain/Temp > 100.5 05/22/19 07:00 06/21/19 06:59 Acetaminophen/ Hydrocodone Bitart ([place] 5/325) 1 tab Q6H PRN ORAL PAIN 4-10 05/22/19 07:00 05/29/19 06:59 05/23/19 21:59 Amlodipine Besylate (Norvasc) 2.5 mg DAILY ORAL 05/23/19 09:00 06/22/19 08:59 05/24/19 09:25 Aspirin (Ecotrin) 81 mg DAILY ORAL 05/23/19 09:00 06/22/19 08:59 05/23/19 09:28 Magnesium Oxide (Mag-Ox 400mg) 400 mg DAILY ORAL 05/23/19 10:30 06/22/19 10:29 05/24/19 09:25 Ondansetron HCl (Zofran) 4 mg Q4H PRN IVP Nausea & Vomiting 05/22/19 07:00 06/21/19 06:59 Temazepam (RestoriL) 7.5 mg HSPRN PRN ORAL Insomnia 05/22/19 15:45 05/29/19 15:44 Vancomycin HCl (Vanco rx to dose) 1 ea DAILY PRN MISC Per rx protocol 05/22/19 07:00 06/21/19 06:59 Vancomycin HCl 750 mg/Sodium Chloride 275 ml @ 184 mls/hr Q12H IVPB 05/23/19 23:00 05/28/19 22:59 05/24/19 11:16 Allergies: Coded Allergies: No Known Allergies (Unverified , 05/21/19) ROS Limited/Unobtainable: No Constitutional: Reports: no symptoms HEENT: Reports: no symptoms Cardiovascular: Reports: no symptoms Respiratory: Reports: no symptoms Gastrointestinal/Abdominal: Reports: no symptoms Genitourinary: Reports: no symptoms Neurologic/Psychiatric: Reports: no symptoms Subjective 69 YO F admitted with left let swelling and redness. Now Cellulitis left leg with ulcer. Cover for Int Med-DR Law Objective Last Vital Signs Date Time Temp Pulse Resp B/P (MAP) Pulse Ox O2 Delivery O2 Flow Rate FiO2 05/24/19 09:25 72 138/93 05/24/19 04:00 98.2 20 91 05/23/19 21:00 Room Air Laboratory Tests Test 05/23/19 21:50 05/24/19 07:45 05/24/19 10:00 Vancomycin Level Trough 9.0 ug/mL (5.0-12.0) White Blood Count 3.5 K/UL (4.8-10.8) L Red Blood Count 2.72 M/UL (4.20-5.40) L Hemoglobin 8.8 G/DL (12.0-16.0) L Hematocrit 25.8 % (37.0-47.0) L Mean Corpuscular Volume 95 FL (80-99) Mean Corpuscular Hemoglobin 32.3 PG (27.0-31.0) H Mean Corpuscular Hemoglobin Concent 34.0 G/DL (32.0-36.0) Red Cell Distribution Width 16.5 % (11.6-14.8) H Platelet Count 34 K/UL (150-450) L Mean Platelet Volume 12.5 FL (6.5-10.1) H Neutrophils (%) (Auto) % (45.0-75.0) Lymphocytes (%) (Auto) % (20.0-45.0) Monocytes (%) (Auto) % (1.0-10.0) Eosinophils (%) (Auto) % (0.0-3.0) Basophils (%) (Auto) % (0.0-2.0) Differential Total Cells Counted 100 Neutrophils % (Manual) 70 % (45-75) Lymphocytes % (Manual) 21 % (20-45) Monocytes % (Manual) 8 % (1-10) Eosinophils % (Manual) 1 % (0-3) Basophils % (Manual) 0 % (0-2) Band Neutrophils 0 % (0-8) Platelet Estimate Decreased L Platelet Morphology Normal Anisocytosis 1+ Sodium Level 138 MMOL/L (136-145) Potassium Level 3.4 MMOL/L (3.5-5.1) L Chloride Level 107 MMOL/L (98-107) Carbon Dioxide Level 25 MMOL/L (21-32) Anion Gap 6 mmol/L (5-15) Blood Urea Nitrogen 10 mg/dL (7-18) Creatinine 0.6 MG/DL (0.55-1.30) Estimat Glomerular Filtration Rate > 60 mL/min (>60) Glucose Level 97 MG/DL (74-106) Calcium Level 8.1 MG/DL (8.5-10.1) L Iron Level 77 ug/dL (50-175) Total Iron Binding Capacity 148 ug/dL (250-450) L Percent Iron Saturation 52 % (15-50) H Unsaturated Iron Binding 71 ug/dL (112-346) L Total Bilirubin 2.1 MG/DL (0.2-1.0) H Direct Bilirubin 1.4 MG/DL (0.0-0.3) H Aspartate Amino Transf (AST/SGOT) 34 U/L (15-37) Alanine Aminotransferase (ALT/SGPT) 24 U/L (12-78) Alkaline Phosphatase 58 U/L (46-116) Total Protein 6.3 G/DL (6.4-8.2) L Albumin 2.0 G/DL (3.4-5.0) L Globulin 4.3 g/dL Albumin/Globulin Ratio 0.5 (1.0-2.7) L Vitamin B12 Level 356 PG/ML (193-986) Folate 10.5 NG/ML (8.6-58.9) Stool Occult Blood Negative (NEGATIVE) Microbiology Date/Time Source Procedure Growth Status 05/21/19 21:56 Blood Blood Culture - Preliminary NO GROWTH AFTER 48 HOURS Resulted 05/21/19 21:40 Blood Blood Culture - Preliminary NO GROWTH AFTER 48 HOURS Resulted 05/22/19 06:00 Leg Left Gram Stain - Final Complete 05/22/19 06:00 Wound Culture - Final Staphylococcus Sp Coag Neg Diphtheroids Complete Intake and Output 05/23/19 05/24/19 19:00 07:00 Intake Total 720 ml Balance 720 ml Intake Oral 720 ml # Voids 4 2 Objective PHYSICAL EXAMINATION: GENERAL: The patient is awake, responsive, in no acute distress. HEENT: Head and neck examination, pupils are reactive to light. Extraocular movements are intact. NECK: Supple. No JVD. LUNGS: Good air entry. No wheezing or rales. HEART: S1, S2. Distant heart sounds. No murmurs or gallops. ABDOMEN: Soft, nondistended, nontender. Positive bowel sounds. EXTREMITIES: No cyanosis, clubbing, or edema. The patient has left lower extremity redness, ulceration on the medial aspect of the leg. Mild tender to touch around the ulcer. RECTAL: Refused and deferred. GENITOURINARY: Refused and deferred. PSYCHIATRIC: Mood and affect is intact. Assessment/Plan Assessment/Plan ASSESSMENT: 1. Cellulitis of the left lower extremity with ulceration. 2. Hypertension. 3. Abnormal liver functions. 4. Pancytopenia with severe thrombocytopenia. 5. Severe protein-calorie malnutrition. 6. Alcohol dependence/withdrawal PLAN: 1. Admit the patient to monitored unit. 2. Code status, Full Code. DVT prophylaxis, SCD. 3. antibiotic = vancomycin. Follow 4. GI consultation with = Ty Olson MD May 24, 2019 13:24
[2019-05-24 16:00] VITALS: BP 133/71
--- NOTE | 2019-05-24 19:25 | NUR ---
NURSE NOTES: Received report from Rudolph Shah RN. Pt in stable condition, denies pain at this time, SR. Will continue plan of care and close monitoring.
[2019-05-24 20:00] VITALS: BP 121/66
[2019-05-24] MEDS: HYDROcodone/Acetamin 5/325 tab ORAL PRN (20:21)
[2019-05-25] VITALS: BP 132/63
[2019-05-25 04:00] VITALS: BP 132/62
--- NOTE | 2019-05-25 07:12 | NUR ---
HAND-OFF: Report given to Rudolph Shah RN. Pt in stable condition, denies pain at this time, SR. Will continue plan of care and close monitoring. .
[2019-05-25 07:33] LABS: HEMATOCRIT 26.6 % (37.0-47.0); MEAN CORPUSCULAR VOLUME 95 FL (80-99); PLATELET COUNT 35 K/UL (150-450); RED CELL DISTRIBUTION WIDTH 16.4 % (11.6-14.8)
[2019-05-25 07:44] LABS: ANION GAP 6 mmol/L (5-15); BLOOD UREA NITROGEN 9 mg/dL (7-18); CARBON DIOXIDE 27 MMOL/L (21-32); CHLORIDE 107 MMOL/L (98-107); CREATININE 0.6 MG/DL (0.55-1.30); POTASSIUM 3.9 MMOL/L (3.5-5.1); SODIUM 139 MMOL/L (136-145)
[2019-05-25 08:00] VITALS: BP 135/68
[2019-05-25] MEDS: Aspirin EC 81mg tab ORAL SCH (09:00)
[2019-05-25] MEDS: Magnesium Oxide 400mg tab ORAL SCH (09:17)
[2019-05-25] MEDS: Vancomycin 750 MG in NS 275 ML IVPB SCH ×2 (11:15→23:42)
--- NOTE | 2019-05-25 11:57 | Consultation ---
History of Present Illness General Date patient seen: May 25, 2019 Chief Complaint: Lower Extremity Injury Present Illness HPI 69 year old female with hx of ETOH abuse brought in to ER with CC of worsening Left junior ulcer. The cause of the injury is not very clear. Pt stating that it happened one week ago but considering her ETOH consumption, it is unclear how reliable this information is. Allergies: Coded Allergies: No Known Allergies (Unverified , 05/21/19) Patient History Healthcare decision maker Resuscitation status Advanced Directive on File Past Medical/Surgical History Past Medical/Surgical History: (1) Alcohol abuse Review of Systems All Other Systems: negative except mentioned in HPI Physical Exam General Appearance: cachetic, thin Lines, tubes and drains: peripheral HEENT: normocephalic, anicteric Neck: non-tender, normal alignment Respiratory/Chest: chest wall non-tender, lungs clear Cardiovascular/Chest: normal peripheral pulses, normal rate Abdomen: normal bowel sounds, non tender Genitourinary/Rectal: normal genital exam, normal rectal exam Extremities: normal range of motion Last 24 Hour Vital Signs Date Time Temp Pulse Resp B/P (MAP) Pulse Ox O2 Delivery O2 Flow Rate FiO2 05/25/19 09:17 81 132/62 05/25/19 04:00 81 05/25/19 04:00 98.1 77 18 132/62 (85) 95 05/25/19 00:00 68 05/25/19 00:00 98.1 77 16 132/63 (86) 96 05/24/19 21:00 Room Air 05/24/19 20:00 82 05/24/19 20:00 97.7 83 18 121/66 (84) 96 05/24/19 16:00 78 05/24/19 16:00 98.1 83 17 133/71 (91) 96 05/24/19 12:00 80 05/24/19 12:00 97.9 87 16 139/78 (98) 98 Intake and Output 05/24/19 05/25/19 18:59 06:59 Intake Total 420 ml Balance 420 ml Intake Oral 420 ml # Voids 2 3 # Bowel Movements 2 Laboratory Tests Test 05/25/19 06:55 White Blood Count 4.0 K/UL (4.8-10.8) L Red Blood Count 2.80 M/UL (4.20-5.40) L Hemoglobin 9.0 G/DL (12.0-16.0) L Hematocrit 26.6 % (37.0-47.0) L Mean Corpuscular Volume 95 FL (80-99) Mean Corpuscular Hemoglobin 32.2 PG (27.0-31.0) H Mean Corpuscular Hemoglobin Concent 33.8 G/DL (32.0-36.0) Red Cell Distribution Width 16.4 % (11.6-14.8) H Platelet Count 35 K/UL (150-450) L Mean Platelet Volume 12.3 FL (6.5-10.1) H Neutrophils (%) (Auto) % (45.0-75.0) Lymphocytes (%) (Auto) % (20.0-45.0) Monocytes (%) (Auto) % (1.0-10.0) Eosinophils (%) (Auto) % (0.0-3.0) Basophils (%) (Auto) % (0.0-2.0) Differential Total Cells Counted 100 Neutrophils % (Manual) 63 % (45-75) Lymphocytes % (Manual) 24 % (20-45) Monocytes % (Manual) 10 % (1-10) Eosinophils % (Manual) 3 % (0-3) Basophils % (Manual) 0 % (0-2) Band Neutrophils 0 % (0-8) Platelet Estimate Decreased L Platelet Morphology Normal Hypochromasia 1+ Anisocytosis 2+ Sodium Level 139 MMOL/L (136-145) Potassium Level 3.9 MMOL/L (3.5-5.1) Chloride Level 107 MMOL/L (98-107) Carbon Dioxide Level 27 MMOL/L (21-32) Anion Gap 6 mmol/L (5-15) Blood Urea Nitrogen 9 mg/dL (7-18) Creatinine 0.6 MG/DL (0.55-1.30) Estimat Glomerular Filtration Rate > 60 mL/min (>60) Glucose Level 93 MG/DL (74-106) Calcium Level 8.0 MG/DL (8.5-10.1) L Height (Feet): 5 Height (Inches): 0.00 Weight (Pounds): 100 Medications Current Medications Medications (Trade) Dose Ordered Sig/Surinder Route PRN Reason Start Time Stop Time Status Last Admin Dose Admin Acetaminophen (Tylenol) 650 mg Q6H PRN ORAL Mild Pain/Temp > 100.5 05/22/19 07:00 06/21/19 06:59 Acetaminophen/ Hydrocodone Bitart ([place] 5/325) 1 tab Q6H PRN ORAL PAIN 4-10 05/22/19 07:00 05/29/19 06:59 05/24/19 20:21 Amlodipine Besylate (Norvasc) 2.5 mg DAILY ORAL 05/23/19 09:00 06/22/19 08:59 05/25/19 09:17 Aspirin (Ecotrin) 81 mg DAILY ORAL 05/23/19 09:00 06/22/19 08:59 05/23/19 09:28 Magnesium Oxide (Mag-Ox 400mg) 400 mg DAILY ORAL 05/23/19 10:30 06/22/19 10:29 05/25/19 09:17 Ondansetron HCl (Zofran) 4 mg Q4H PRN IVP Nausea & Vomiting 05/22/19 07:00 06/21/19 06:59 Temazepam (RestoriL) 7.5 mg HSPRN PRN ORAL Insomnia 05/22/19 15:45 05/29/19 15:44 Vancomycin HCl (Vanco rx to dose) 1 ea DAILY PRN MISC Per rx protocol 05/22/19 07:00 06/21/19 06:59 Vancomycin HCl 750 mg/Sodium Chloride 275 ml @ 184 mls/hr Q12H IVPB 05/23/19 23:00 05/28/19 22:59 05/25/19 11:15 Assessment/Plan Problem List: (1) Cellulitis ICD Codes: L03.90 - Cellulitis, unspecified SNOMED: 913568715 Qualifiers: Qualified Codes: L03.119 - Cellulitis of unspecified part of limb (2) Coagulopathy ICD Codes: D68.9 - Coagulation defect, unspecified SNOMED: 05936451 (3) Alcoholic liver disease ICD Codes: K70.9 - Alcoholic liver disease, unspecified SNOMED: 89301885 (4) Severe protein-calorie malnutrition ICD Codes: E43 - Unspecified severe protein-calorie malnutrition SNOMED: 228327783, 280318150, 146728784 Assessment/Plan: wound care iv abx anemia w/u Nutrition evaluation stool for OB Dony Chen MD May 25, 2019 11:57
[2019-05-25 12:00] VITALS: BP 130/78
--- NOTE | 2019-05-25 12:09 | NUR ---
CASE MANAGEMENT:REVIEW 05/25/19 SI: CELLULITIS. MALNUTRITION ALCOHOLIC LIVER DISEASE 98.1 77 18 132/62 95% ON RA H/H-9.0/26.6 PLT-35 IS: IV VANCOMYCIN Q12 MAG OXIDE PO QD NORVASC PO QD ASA PO QD NORCO PO Q6HRS PRN : TELEMETRY STATUS DCP: FROM HOME PLAN: PER MD ~ MULTIPLE RUNS OF PVC'S ~ CARDIAC CONSULT CALLED
[2019-05-25 16:00] VITALS: BP 140/70
[2019-05-25] MEDS: HYDROcodone/Acetamin 5/325 tab ORAL PRN (17:19)
--- NOTE | 2019-05-25 18:52 | Internal Med Progress Note ---
Subjective Date of Service: May 25, 2019 Physician Name Ty Moulton Attending Physician Italo Law MD Current Medications Medications (Trade) Dose Ordered Sig/Surinder Route PRN Reason Start Time Stop Time Status Last Admin Dose Admin Acetaminophen (Tylenol) 650 mg Q6H PRN ORAL Mild Pain/Temp > 100.5 05/22/19 07:00 06/21/19 06:59 Acetaminophen/ Hydrocodone Bitart ([place] 5/325) 1 tab Q6H PRN ORAL PAIN 4-10 05/22/19 07:00 05/29/19 06:59 05/25/19 17:19 Amlodipine Besylate (Norvasc) 2.5 mg DAILY ORAL 05/23/19 09:00 06/22/19 08:59 05/25/19 09:17 Aspirin (Ecotrin) 81 mg DAILY ORAL 05/23/19 09:00 06/22/19 08:59 05/23/19 09:28 Magnesium Oxide (Mag-Ox 400mg) 400 mg DAILY ORAL 05/23/19 10:30 06/22/19 10:29 05/25/19 09:17 Ondansetron HCl (Zofran) 4 mg Q4H PRN IVP Nausea & Vomiting 05/22/19 07:00 06/21/19 06:59 Temazepam (RestoriL) 7.5 mg HSPRN PRN ORAL Insomnia 05/22/19 15:45 05/29/19 15:44 Vancomycin HCl (Vanco rx to dose) 1 ea DAILY PRN MISC Per rx protocol 05/22/19 07:00 06/21/19 06:59 Vancomycin HCl 750 mg/Sodium Chloride 275 ml @ 184 mls/hr Q12H IVPB 05/23/19 23:00 05/28/19 22:59 05/25/19 11:15 Allergies: Coded Allergies: No Known Allergies (Unverified , 05/21/19) ROS Limited/Unobtainable: No Constitutional: Reports: no symptoms HEENT: Reports: no symptoms Cardiovascular: Reports: no symptoms Respiratory: Reports: no symptoms Gastrointestinal/Abdominal: Reports: no symptoms Genitourinary: Reports: no symptoms Neurologic/Psychiatric: Reports: no symptoms Subjective 69 YO F admitted with left let swelling and redness. Now Cellulitis left leg with ulcer. Cover for Int Med-DR Law. Premature ventricular contractions on monitor Objective Last Vital Signs Date Time Temp Pulse Resp B/P (MAP) Pulse Ox O2 Delivery O2 Flow Rate FiO2 05/25/19 16:00 81 05/25/19 16:00 98.2 20 140/70 (93) 98 05/25/19 09:00 Room Air Laboratory Tests Test 05/25/19 06:55 White Blood Count 4.0 K/UL (4.8-10.8) L Red Blood Count 2.80 M/UL (4.20-5.40) L Hemoglobin 9.0 G/DL (12.0-16.0) L Hematocrit 26.6 % (37.0-47.0) L Mean Corpuscular Volume 95 FL (80-99) Mean Corpuscular Hemoglobin 32.2 PG (27.0-31.0) H Mean Corpuscular Hemoglobin Concent 33.8 G/DL (32.0-36.0) Red Cell Distribution Width 16.4 % (11.6-14.8) H Platelet Count 35 K/UL (150-450) L Mean Platelet Volume 12.3 FL (6.5-10.1) H Neutrophils (%) (Auto) % (45.0-75.0) Lymphocytes (%) (Auto) % (20.0-45.0) Monocytes (%) (Auto) % (1.0-10.0) Eosinophils (%) (Auto) % (0.0-3.0) Basophils (%) (Auto) % (0.0-2.0) Differential Total Cells Counted 100 Neutrophils % (Manual) 63 % (45-75) Lymphocytes % (Manual) 24 % (20-45) Monocytes % (Manual) 10 % (1-10) Eosinophils % (Manual) 3 % (0-3) Basophils % (Manual) 0 % (0-2) Band Neutrophils 0 % (0-8) Platelet Estimate Decreased L Platelet Morphology Normal Hypochromasia 1+ Anisocytosis 2+ Sodium Level 139 MMOL/L (136-145) Potassium Level 3.9 MMOL/L (3.5-5.1) Chloride Level 107 MMOL/L (98-107) Carbon Dioxide Level 27 MMOL/L (21-32) Anion Gap 6 mmol/L (5-15) Blood Urea Nitrogen 9 mg/dL (7-18) Creatinine 0.6 MG/DL (0.55-1.30) Estimat Glomerular Filtration Rate > 60 mL/min (>60) Glucose Level 93 MG/DL (74-106) Calcium Level 8.0 MG/DL (8.5-10.1) L Intake and Output 05/24/19 05/25/19 19:00 07:00 Intake Total 420 ml Balance 420 ml Intake Oral 420 ml # Voids 3 2 # Bowel Movements 2 Objective PHYSICAL EXAMINATION: GENERAL: The patient is awake, responsive, in no acute distress. HEENT: Head and neck examination, pupils are reactive to light. Extraocular movements are intact. NECK: Supple. No JVD. LUNGS: Good air entry. No wheezing or rales. HEART: S1, S2. Distant heart sounds. No murmurs or gallops. ABDOMEN: Soft, nondistended, nontender. Positive bowel sounds. EXTREMITIES: No cyanosis, clubbing, or edema. The patient has left lower extremity redness, ulceration on the medial aspect of the leg. Mild tender to touch around the ulcer. RECTAL: Refused and deferred. GENITOURINARY: Refused and deferred. PSYCHIATRIC: Mood and affect is intact. Assessment/Plan Assessment/Plan ASSESSMENT: 1. Cellulitis of the left lower extremity with ulceration. 2. Hypertension. 3. Abnormal liver functions. 4. Pancytopenia with severe thrombocytopenia. 5. Severe protein-calorie malnutrition. 6. Alcohol dependence/withdrawal 7. Premature ventricular contractions PLAN: 1. Admit the patient to monitored unit. 2. Code status, Full Code. DVT prophylaxis, SCD. 3. antibiotic = vancomycin. Follow 4. GI consultation with = Jeremy Ramos 5. Await cardiology consult. Ty Moulton MD May 25, 2019 18:52
--- NOTE | 2019-05-25 19:30 | NUR ---
NURSE NOTES: Received pt and report from LEXUS Griggs. Observed pt resting in bed with both eyes closed; arousable to voice. Pt is A/Ox4. surveillance system monitor is in placed; pt is NSR. IV site intact, asymptomatic, and patent. Bed is in the lowest position and locked. Call light and bedside table is within reach. No signs/symptoms of acute distress noted at this time. Will continue plan of care.
[2019-05-25 20:00] VITALS: BP 126/75
--- NOTE | 2019-05-25 20:01 | Cardiology Progress Note ---
Objective Last 24 Hour Vital Signs Date Time Temp Pulse Resp B/P (MAP) Pulse Ox O2 Delivery O2 Flow Rate FiO2 05/25/19 16:00 81 05/25/19 16:00 98.2 71 20 140/70 (93) 98 05/25/19 12:00 85 05/25/19 12:00 97.9 78 18 130/78 (95) 100 05/25/19 09:17 81 132/62 05/25/19 09:00 Room Air 05/25/19 08:00 97.7 68 19 135/68 (90) 99 05/25/19 08:00 78 05/25/19 04:00 81 05/25/19 04:00 98.1 77 18 132/62 (85) 95 05/25/19 00:00 68 05/25/19 00:00 98.1 77 16 132/63 (86) 96 05/24/19 21:00 Room Air Intake and Output 05/24/19 05/25/19 19:00 07:00 Intake Total 420 ml Balance 420 ml Intake Oral 420 ml # Voids 3 2 # Bowel Movements 2 Laboratory Tests Test 05/25/19 06:55 White Blood Count 4.0 K/UL (4.8-10.8) L Red Blood Count 2.80 M/UL (4.20-5.40) L Hemoglobin 9.0 G/DL (12.0-16.0) L Hematocrit 26.6 % (37.0-47.0) L Mean Corpuscular Volume 95 FL (80-99) Mean Corpuscular Hemoglobin 32.2 PG (27.0-31.0) H Mean Corpuscular Hemoglobin Concent 33.8 G/DL (32.0-36.0) Red Cell Distribution Width 16.4 % (11.6-14.8) H Platelet Count 35 K/UL (150-450) L Mean Platelet Volume 12.3 FL (6.5-10.1) H Neutrophils (%) (Auto) % (45.0-75.0) Lymphocytes (%) (Auto) % (20.0-45.0) Monocytes (%) (Auto) % (1.0-10.0) Eosinophils (%) (Auto) % (0.0-3.0) Basophils (%) (Auto) % (0.0-2.0) Differential Total Cells Counted 100 Neutrophils % (Manual) 63 % (45-75) Lymphocytes % (Manual) 24 % (20-45) Monocytes % (Manual) 10 % (1-10) Eosinophils % (Manual) 3 % (0-3) Basophils % (Manual) 0 % (0-2) Band Neutrophils 0 % (0-8) Platelet Estimate Decreased L Platelet Morphology Normal Hypochromasia 1+ Anisocytosis 2+ Sodium Level 139 MMOL/L (136-145) Potassium Level 3.9 MMOL/L (3.5-5.1) Chloride Level 107 MMOL/L (98-107) Carbon Dioxide Level 27 MMOL/L (21-32) Anion Gap 6 mmol/L (5-15) Blood Urea Nitrogen 9 mg/dL (7-18) Creatinine 0.6 MG/DL (0.55-1.30) Estimat Glomerular Filtration Rate > 60 mL/min (>60) Glucose Level 93 MG/DL (74-106) Calcium Level 8.0 MG/DL (8.5-10.1) Candido Kimball MD May 25, 2019 20:01
--- NOTE | 2019-05-25 22:44 | General Progress Note ---
Assessment/Plan Assessment/Plan: Assessment - pancytopenia - cholelithiasis - fatty liver - abnormal LFT - OB (-) Stools Recommendations - follow labs - consider Heme evaluation - push po - will order hepatitis serologies Subjective Allergies: Coded Allergies: No Known Allergies (Unverified , 05/21/19) Subjective above noted feels ok no abd pain Objective Last 24 Hour Vital Signs Date Time Temp Pulse Resp B/P (MAP) Pulse Ox O2 Delivery O2 Flow Rate FiO2 05/25/19 16:00 81 05/25/19 16:00 98.2 71 20 140/70 (93) 98 05/25/19 12:00 85 05/25/19 12:00 97.9 78 18 130/78 (95) 100 05/25/19 09:17 81 132/62 05/25/19 09:00 Room Air 05/25/19 08:00 97.7 68 19 135/68 (90) 99 05/25/19 08:00 78 05/25/19 04:00 81 05/25/19 04:00 98.1 77 18 132/62 (85) 95 05/25/19 00:00 68 05/25/19 00:00 98.1 77 16 132/63 (86) 96 Intake and Output 05/24/19 05/25/19 19:00 07:00 Intake Total 420 ml Balance 420 ml Intake Oral 420 ml # Voids 3 2 # Bowel Movements 2 Laboratory Tests 05/25/19 06:55: White Blood Count 4.0L, Red Blood Count 2.80L, Hemoglobin 9.0L, Hematocrit 26.6L , Mean Corpuscular Volume 95, Mean Corpuscular Hemoglobin 32.2H, Mean Corpuscular Hemoglobin Concent 33.8, Red Cell Distribution Width 16.4H, Platelet Count 35L, Mean Platelet Volume 12.3H, Neutrophils (%) (Auto) , Lymphocytes (%) (Auto) , Monocytes (%) (Auto) , Eosinophils (%) (Auto) , Basophils (%) (Auto) , Differential Total Cells Counted 100, Neutrophils % ( Manual) 63, Lymphocytes % (Manual) 24, Monocytes % (Manual) 10, Eosinophils % ( Manual) 3, Basophils % (Manual) 0, Band Neutrophils 0, Platelet Estimate DecreasedL, Platelet Morphology Normal, Hypochromasia 1+, Anisocytosis 2+, Sodium Level 139, Potassium Level 3.9, Chloride Level 107, Carbon Dioxide Level 27, Anion Gap 6, Blood Urea Nitrogen 9, Creatinine 0.6, Estimat Glomerular Filtration Rate > 60, Glucose Level 93, Calcium Level 8.0L Height (Feet): 5 Height (Inches): 0.00 Weight (Pounds): 100 Objective WDWN AA woman NCAT supple CTA RR abd soft ND NT (+) Left leg wound Jeremy Ramos MD May 25, 2019 22:44
[2019-05-26] VITALS: BP 136/72
[2019-05-26 04:00] VITALS: BP 148/69
[2019-05-26 07:25] LABS: HEMOGLOBIN 8.9 G/DL (12.0-16.0); MEAN CORPUSCULAR VOLUME 96 FL (80-99); PLATELET COUNT 40 K/UL (150-450); RED BLOOD COUNT 2.71 M/UL (4.20-5.40); RED CELL DISTRIBUTION WIDTH 16.8 % (11.6-14.8); WHITE BLOOD COUNT 3.6 K/UL (4.8-10.8)
[2019-05-26 07:43] LABS: INR 1.2 (0.9-1.1)
--- NOTE | 2019-05-26 07:53 | NUR ---
HAND-OFF: Report given to LEXUS Griggs. Plan of care endorsed.
[2019-05-26 08:00] VITALS: BP 161/77
[2019-05-26 08:13] LABS: ALANINE AMINOTRANSFERASE 24 U/L (12-78); ALBUMIN/GLOBULIN RATIO 0.5 (1.0-2.7); ALKALINE PHOSPHATASE 54 U/L (46-116); ANION GAP 7 mmol/L (5-15); ASPARTATE AMINO TRANSFERASE 29 U/L (15-37); BILIRUBIN,TOTAL 2.2 MG/DL (0.2-1.0); BLOOD UREA NITROGEN 8 mg/dL (7-18); CALCIUM 8.1 MG/DL (8.5-10.1); CARBON DIOXIDE 27 MMOL/L (21-32); CHLORIDE 118 MMOL/L (98-107); CREATININE 0.6 MG/DL (0.55-1.30); LACTATE DEHYDROGENASE 161 U/L (81-234); POTASSIUM 3.9 MMOL/L (3.5-5.1); SODIUM 152 MMOL/L (136-145)
[2019-05-26 08:21] LABS: BILIRUBIN,DIRECT 1.4 MG/DL (0.0-0.3)
[2019-05-26 08:41] LABS: % IRON SATURATION 54 % (15-50); IRON 80 ug/dL (50-175); TOTAL IRON BINDING CAPACITY 149 ug/dL (250-450)
[2019-05-26] MEDS: Aspirin EC 81mg tab ORAL SCH (09:00)
[2019-05-26] MEDS: Magnesium Oxide 400mg tab ORAL SCH (09:27)
[2019-05-26] MEDS: Vancomycin 750 MG in NS 275 ML IVPB SCH ×2 (11:08→23:15)
--- NOTE | 2019-05-26 11:34 | Pulmonology Progress Note ---
Assessment/Plan Problems: (1) Cellulitis (2) Coagulopathy (3) Alcoholic liver disease (4) Severe protein-calorie malnutrition (5) Thrombocytopenia (6) Protein calorie malnutrition Assessment/Plan all reviewed wound care iv abx anemia w/u Nutrition evaluation stool for OB GI v/u pt/ot might need placement Subjective ROS Limited/Unobtainable: No Constitutional: Reports: no symptoms HEENT: Repors: no symptoms Allergies: Coded Allergies: No Known Allergies (Unverified , 05/21/19) Objective Last 24 Hour Vital Signs Date Time Temp Pulse Resp B/P (MAP) Pulse Ox O2 Delivery O2 Flow Rate FiO2 05/26/19 09:27 75 148/69 05/26/19 08:46 Room Air 05/26/19 08:00 96.9 89 18 161/77 (105) 96 05/26/19 08:00 89 05/26/19 04:00 98.1 75 20 148/69 (95) 95 05/26/19 04:00 75 05/26/19 00:00 67 05/26/19 00:00 97.9 67 19 136/72 (93) 95 05/25/19 21:00 Room Air 05/25/19 20:00 98.1 67 19 126/75 (92) 94 05/25/19 20:00 67 05/25/19 16:00 81 05/25/19 16:00 98.2 71 20 140/70 (93) 98 05/25/19 12:00 85 05/25/19 12:00 97.9 78 18 130/78 (95) 100 Intake and Output 05/25/19 05/26/19 19:00 07:00 Intake Total 320 ml Balance 320 ml Intake Oral 320 ml # Voids 1 General Appearance: WD/WN HEENT: normocephalic Respiratory/Chest: chest wall non-tender, lungs clear Breasts: no masses Cardiovascular: normal peripheral pulses Abdomen: normal bowel sounds, soft, non tender Genitourinary: normal external genitalia Extremities: no cyanosis 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 Lymphatic: no neck adenopathy Laboratory Tests 05/26/19 06:11: White Blood Count 3.6L, Red Blood Count 2.71L, Hemoglobin 8.9L, Hematocrit 26.0L , Mean Corpuscular Volume 96, Mean Corpuscular Hemoglobin 32.8H, Mean Corpuscular Hemoglobin Concent 34.3, Red Cell Distribution Width 16.8H, Platelet Count 40L, Mean Platelet Volume 11.2H, Neutrophils (%) (Auto) , Lymphocytes (%) (Auto) , Monocytes (%) (Auto) , Eosinophils (%) (Auto) , Basophils (%) (Auto) , Differential Total Cells Counted 100, Neutrophils % ( Manual) 62, Lymphocytes % (Manual) 20, Monocytes % (Manual) 15H, Eosinophils % ( Manual) 3, Basophils % (Manual) 0, Band Neutrophils 0, Platelet Estimate DecreasedL, Platelet Morphology Normal, Hypochromasia 2+, Anisocytosis 1+, Spherocytes 1+, Erythrocyte Sedimentation Rate 86H, Reticulocyte Count [Pending] , Prothrombin Time 12.9H, Prothromb Time International Ratio 1.2H, Activated Partial Thromboplast Time 33, Sodium Level 152#H, Potassium Level 3.9, Chloride Level 118H, Carbon Dioxide Level 27, Anion Gap 7, Blood Urea Nitrogen 8, Creatinine 0.6, Estimat Glomerular Filtration Rate > 60, Glucose Level 90, Calcium Level 8.1L, Iron Level 80, Total Iron Binding Capacity 149L, Percent Iron Saturation 54H, Unsaturated Iron Binding 69L, Total Bilirubin 2.2H, Direct Bilirubin 1.4H, Aspartate Amino Transf (AST/SGOT) 29, Alanine Aminotransferase ( ALT/SGPT) 24, Alkaline Phosphatase 54, Lactate Dehydrogenase 161, Total Protein 6.3L, Albumin 2.0L, Globulin 4.3, Albumin/Globulin Ratio 0.5L, Carcinoembryonic Antigen [Pending], Vitamin B12 Level 376, Folate 12.3, Hepatitis A IgM Antibody [Pending], Hepatitis B Surface Antigen [Pending], Hepatitis B Core IgM Antibody [Pending], Hepatitis C Antibody [Pending] Current Medications Medications (Trade) Dose Ordered Sig/Surinder Route PRN Reason Start Time Stop Time Status Last Admin Dose Admin Acetaminophen (Tylenol) 650 mg Q6H PRN ORAL Mild Pain/Temp > 100.5 05/22/19 07:00 06/21/19 06:59 05/26/19 08:02 Acetaminophen/ Hydrocodone Bitart ([place] 5/325) 1 tab Q6H PRN ORAL PAIN 4-10 05/22/19 07:00 05/29/19 06:59 05/25/19 17:19 Amlodipine Besylate (Norvasc) 2.5 mg DAILY ORAL 05/23/19 09:00 06/22/19 08:59 05/26/19 09:27 Aspirin (Ecotrin) 81 mg DAILY ORAL 05/23/19 09:00 06/22/19 08:59 05/23/19 09:28 Magnesium Oxide (Mag-Ox 400mg) 400 mg DAILY ORAL 05/23/19 10:30 06/22/19 10:29 05/26/19 09:27 Ondansetron HCl (Zofran) 4 mg Q4H PRN IVP Nausea & Vomiting 05/22/19 07:00 06/21/19 06:59 Temazepam (RestoriL) 7.5 mg HSPRN PRN ORAL Insomnia 05/22/19 15:45 05/29/19 15:44 Vancomycin HCl (Vanco rx to dose) 1 ea DAILY PRN MISC Per rx protocol 05/22/19 07:00 06/21/19 06:59 Vancomycin HCl 750 mg/Sodium Chloride 275 ml @ 184 mls/hr Q12H IVPB 05/23/19 23:00 05/28/19 22:59 05/26/19 11:08 Dony Chne MD May 26, 2019 11:34
--- NOTE | 2019-05-26 11:50 | NUR ---
PT EVALUATION Patient seen for initial evaluation. Patient presents with generalized weakness which impairs patient's balance and ability to perform mobility tasks safely. Patient requires min assist for bed mobility and CGA for transfers without assistive device. Patient able to ambulate 100 ft with CGA, slightly unsteady during ambulation however no loss of balance. Patient will benefit from skilled inpatient PT intervention to address strength, balance and safety for improved level of independence with functional mobility. Recommend discharge home with home PT follow-up once medically cleared by MD. No DME recommendations at this time. Addendum: 05/26/19 at 1232 by VERONICA BRITTON PT Amended: Links added.
[2019-05-26 12:00] VITALS: BP 126/75
--- NOTE | 2019-05-26 13:33 | NUR ---
RD ASSESSMENT & RECOMMENDATIONS SEE CARE ACTIVITY FOR COMPLETE ASSESSMENT DAILY ESTIMATED NEEDS: Needs based on Liver dz/ 51kg 25-30 kcals/kg 3227-3009 total kcals 1-1.5 g protein/kg 51-76 g total protein 25-30 mL/kg 4192-5357 total fluid mLs NUTRITION DIAGNOSIS: Altered nutrition related lab values R/T fatty liver as evidenced by elev T bili (2.8-> 2.2), elev LFTs, now wnl. CURRENT DIET:CARDIAC PO DIET RECOMMENDATIONS: Maintain cardiac diet/ texture as tolerated ADDITIONAL RECOMMENDATIONS: * Calibrated bedscale wt on 05/26: 112.4lbs * Monitor liver fxn: LFTs now wnl, T bili remains elev (2.2) * MVI x 1 * Monitor tolerance to current diet texture -> missing most teeth, pt requesting to continue regular texture diet * Monitor for continued good PO intake
[2019-05-26 16:00] VITALS: BP 135/72
--- NOTE | 2019-05-26 17:52 | Internal Med Progress Note ---
Subjective Date of Service: May 26, 2019 Physician Name Ty Moulton Attending Physician Italo Law MD Current Medications Medications (Trade) Dose Ordered Sig/Surinder Route PRN Reason Start Time Stop Time Status Last Admin Dose Admin Acetaminophen (Tylenol) 650 mg Q6H PRN ORAL Mild Pain/Temp > 100.5 05/22/19 07:00 06/21/19 06:59 05/26/19 08:02 Acetaminophen/ Hydrocodone Bitart ([place] 5/325) 1 tab Q6H PRN ORAL PAIN 4-10 05/22/19 07:00 05/29/19 06:59 05/25/19 17:19 Amlodipine Besylate (Norvasc) 2.5 mg DAILY ORAL 05/23/19 09:00 06/22/19 08:59 05/26/19 09:27 Aspirin (Ecotrin) 81 mg DAILY ORAL 05/23/19 09:00 06/22/19 08:59 05/23/19 09:28 Magnesium Oxide (Mag-Ox 400mg) 400 mg DAILY ORAL 05/23/19 10:30 06/22/19 10:29 05/26/19 09:27 Ondansetron HCl (Zofran) 4 mg Q4H PRN IVP Nausea & Vomiting 05/22/19 07:00 06/21/19 06:59 Temazepam (RestoriL) 7.5 mg HSPRN PRN ORAL Insomnia 05/22/19 15:45 05/29/19 15:44 Vancomycin HCl (Vanco rx to dose) 1 ea DAILY PRN MISC Per rx protocol 05/22/19 07:00 06/21/19 06:59 Vancomycin HCl 750 mg/Sodium Chloride 275 ml @ 184 mls/hr Q12H IVPB 05/23/19 23:00 05/28/19 22:59 05/26/19 11:08 Allergies: Coded Allergies: No Known Allergies (Unverified , 05/21/19) ROS Limited/Unobtainable: No Constitutional: Reports: no symptoms HEENT: Reports: no symptoms Cardiovascular: Reports: no symptoms Respiratory: Reports: no symptoms Gastrointestinal/Abdominal: Reports: no symptoms Genitourinary: Reports: no symptoms Neurologic/Psychiatric: Reports: no symptoms Subjective 69 YO F admitted with left let swelling and redness. Now Cellulitis left leg with ulcer. Cover for Int Med-DR Law. Premature ventricular contractions on monitor Objective Last Vital Signs Date Time Temp Pulse Resp B/P (MAP) Pulse Ox O2 Delivery O2 Flow Rate FiO2 05/26/19 16:00 96 05/26/19 16:00 97.6 16 135/72 (93) 95 05/26/19 08:46 Room Air Laboratory Tests Test 05/26/19 06:11 White Blood Count 3.6 K/UL (4.8-10.8) L Red Blood Count 2.71 M/UL (4.20-5.40) L Hemoglobin 8.9 G/DL (12.0-16.0) L Hematocrit 26.0 % (37.0-47.0) L Mean Corpuscular Volume 96 FL (80-99) Mean Corpuscular Hemoglobin 32.8 PG (27.0-31.0) H Mean Corpuscular Hemoglobin Concent 34.3 G/DL (32.0-36.0) Red Cell Distribution Width 16.8 % (11.6-14.8) H Platelet Count 40 K/UL (150-450) L Mean Platelet Volume 11.2 FL (6.5-10.1) H Neutrophils (%) (Auto) % (45.0-75.0) Lymphocytes (%) (Auto) % (20.0-45.0) Monocytes (%) (Auto) % (1.0-10.0) Eosinophils (%) (Auto) % (0.0-3.0) Basophils (%) (Auto) % (0.0-2.0) Differential Total Cells Counted 100 Neutrophils % (Manual) 62 % (45-75) Lymphocytes % (Manual) 20 % (20-45) Monocytes % (Manual) 15 % (1-10) H Eosinophils % (Manual) 3 % (0-3) Basophils % (Manual) 0 % (0-2) Band Neutrophils 0 % (0-8) Platelet Estimate Decreased L Platelet Morphology Normal Hypochromasia 2+ Anisocytosis 1+ Spherocytes 1+ Erythrocyte Sedimentation Rate 86 MM/HR (0-30) H Reticulocyte Count 2.7 % (0.5-2.0) H Prothrombin Time 12.9 SEC (9.30-11.50) H Prothromb Time International Ratio 1.2 (0.9-1.1) H Activated Partial Thromboplast Time 33 SEC (23-33) Sodium Level 152 MMOL/L (136-145) #H Potassium Level 3.9 MMOL/L (3.5-5.1) Chloride Level 118 MMOL/L (98-107) H Carbon Dioxide Level 27 MMOL/L (21-32) Anion Gap 7 mmol/L (5-15) Blood Urea Nitrogen 8 mg/dL (7-18) Creatinine 0.6 MG/DL (0.55-1.30) Estimat Glomerular Filtration Rate > 60 mL/min (>60) Glucose Level 90 MG/DL (74-106) Calcium Level 8.1 MG/DL (8.5-10.1) L Iron Level 80 ug/dL (50-175) Total Iron Binding Capacity 149 ug/dL (250-450) L Percent Iron Saturation 54 % (15-50) H Unsaturated Iron Binding 69 ug/dL (112-346) L Total Bilirubin 2.2 MG/DL (0.2-1.0) H Direct Bilirubin 1.4 MG/DL (0.0-0.3) H Aspartate Amino Transf (AST/SGOT) 29 U/L (15-37) Alanine Aminotransferase (ALT/SGPT) 24 U/L (12-78) Alkaline Phosphatase 54 U/L (46-116) Lactate Dehydrogenase 161 U/L (81-234) Total Protein 6.3 G/DL (6.4-8.2) L Albumin 2.0 G/DL (3.4-5.0) L Globulin 4.3 g/dL Albumin/Globulin Ratio 0.5 (1.0-2.7) L Carcinoembryonic Antigen Pending Vitamin B12 Level 376 PG/ML (193-986) Folate 12.3 NG/ML (8.6-58.9) Hepatitis A IgM Antibody Pending Hepatitis B Surface Antigen Pending Hepatitis B Core IgM Antibody Pending Hepatitis C Antibody Pending Intake and Output 05/25/19 05/26/19 19:00 07:00 Intake Total 320 ml Balance 320 ml Intake Oral 320 ml # Voids 1 Objective PHYSICAL EXAMINATION: GENERAL: The patient is awake, responsive, in no acute distress. HEENT: Head and neck examination, pupils are reactive to light. Extraocular movements are intact. NECK: Supple. No JVD. LUNGS: Good air entry. No wheezing or rales. HEART: S1, S2. Distant heart sounds. No murmurs or gallops. ABDOMEN: Soft, nondistended, nontender. Positive bowel sounds. EXTREMITIES: No cyanosis, clubbing, or edema. The patient has left lower extremity redness, ulceration on the medial aspect of the leg. Mild tender to touch around the ulcer. RECTAL: Refused and deferred. GENITOURINARY: Refused and deferred. PSYCHIATRIC: Mood and affect is intact. Assessment/Plan Assessment/Plan ASSESSMENT: 1. Cellulitis of the left lower extremity with ulceration. 2. Hypertension. 3. Abnormal liver functions. 4. Pancytopenia with severe thrombocytopenia. 5. Severe protein-calorie malnutrition. 6. Alcohol dependence/withdrawal 7. Premature ventricular contractions PLAN: 1. Admit the patient to monitored unit. 2. Code status, Full Code. DVT prophylaxis, SCD. 3. antibiotic = vancomycin. Follow 4. GI consultation with = Jeremy Ramos 5. Cardiology consult=Dr Parker. Ty Moulton MD May 26, 2019 17:52
[2019-05-26 20:00] VITALS: BP 135/72
--- NOTE | 2019-05-26 20:20 | General Progress Note ---
Assessment/Plan Assessment/Plan: Assessment - pancytopenia - cholelithiasis - fatty liver - abnormal LFT - OB (-) Stools Recommendations - follow labs - consider Heme evaluation - push po - will order hepatitis serologies - pending Subjective Allergies: Coded Allergies: No Known Allergies (Unverified , 05/21/19) Subjective above noted feels ok no abd pain tolerating PO Objective Last 24 Hour Vital Signs Date Time Temp Pulse Resp B/P (MAP) Pulse Ox O2 Delivery O2 Flow Rate FiO2 05/26/19 16:00 96 05/26/19 16:00 97.6 96 16 135/72 (93) 95 05/26/19 12:00 80 05/26/19 12:00 98.1 67 19 126/75 (92) 94 05/26/19 09:27 75 148/69 05/26/19 08:46 Room Air 05/26/19 08:00 96.9 89 18 161/77 (105) 96 05/26/19 08:00 89 05/26/19 04:00 98.1 75 20 148/69 (95) 95 05/26/19 04:00 75 05/26/19 00:00 67 05/26/19 00:00 97.9 67 19 136/72 (93) 95 05/25/19 21:00 Room Air Intake and Output 05/25/19 05/26/19 19:00 07:00 Intake Total 320 ml Balance 320 ml Intake Oral 320 ml # Voids 1 Laboratory Tests 05/26/19 06:11: White Blood Count 3.6L, Red Blood Count 2.71L, Hemoglobin 8.9L, Hematocrit 26.0L , Mean Corpuscular Volume 96, Mean Corpuscular Hemoglobin 32.8H, Mean Corpuscular Hemoglobin Concent 34.3, Red Cell Distribution Width 16.8H, Platelet Count 40L, Mean Platelet Volume 11.2H, Neutrophils (%) (Auto) , Lymphocytes (%) (Auto) , Monocytes (%) (Auto) , Eosinophils (%) (Auto) , Basophils (%) (Auto) , Differential Total Cells Counted 100, Neutrophils % ( Manual) 62, Lymphocytes % (Manual) 20, Monocytes % (Manual) 15H, Eosinophils % ( Manual) 3, Basophils % (Manual) 0, Band Neutrophils 0, Platelet Estimate DecreasedL, Platelet Morphology Normal, Hypochromasia 2+, Anisocytosis 1+, Spherocytes 1+, Erythrocyte Sedimentation Rate 86H, Reticulocyte Count 2.7H, Prothrombin Time 12.9H, Prothromb Time International Ratio 1.2H, Activated Partial Thromboplast Time 33, Sodium Level 152#H, Potassium Level 3.9, Chloride Level 118H, Carbon Dioxide Level 27, Anion Gap 7, Blood Urea Nitrogen 8, Creatinine 0.6, Estimat Glomerular Filtration Rate > 60, Glucose Level 90, Calcium Level 8.1L, Iron Level 80, Total Iron Binding Capacity 149L, Percent Iron Saturation 54H, Unsaturated Iron Binding 69L, Total Bilirubin 2.2H, Direct Bilirubin 1.4H, Aspartate Amino Transf (AST/SGOT) 29, Alanine Aminotransferase ( ALT/SGPT) 24, Alkaline Phosphatase 54, Lactate Dehydrogenase 161, Total Protein 6.3L, Albumin 2.0L, Globulin 4.3, Albumin/Globulin Ratio 0.5L, Carcinoembryonic Antigen [Pending], Vitamin B12 Level 376, Folate 12.3, Hepatitis A IgM Antibody [Pending], Hepatitis B Surface Antigen [Pending], Hepatitis B Core IgM Antibody [Pending], Hepatitis C Antibody [Pending] Height (Feet): 5 Height (Inches): 0.00 Weight (Pounds): 100 Objective WDWN AA woman NCAT supple CTA RR abd soft ND NT (+) Left leg wound Jeremy Ramos MD May 26, 2019 20:20
[2019-05-26] MEDS: HYDROcodone/Acetamin 5/325 tab ORAL PRN (21:34)
[2019-05-27] VITALS: BP 138/68
[2019-05-27 04:00] VITALS: BP 115/68
--- NOTE | 2019-05-27 06:51 | NUR ---
HAND-OFF: Report given to nurseTone.pt. denies pain or discomfort..
--- NOTE | 2019-05-27 07:42 | NUR ---
NURSE NOTES: Pt sitting at bedside, pt Ox4 calm and cooperative, IV intact, pt able to ambulate with steady gait, pt denies pain, platelets at 40, need to collect OBS, call light at bedside, no s/s of distress or sob noted.
[2019-05-27 07:47] LABS: HEMOGLOBIN 8.5 G/DL (12.0-16.0); MEAN CORPUSCULAR VOLUME 95 FL (80-99); PLATELET COUNT 43 K/UL (150-450); RED BLOOD COUNT 2.63 M/UL (4.20-5.40); RED CELL DISTRIBUTION WIDTH 16.6 % (11.6-14.8); WHITE BLOOD COUNT 3.2 K/UL (4.8-10.8)
[2019-05-27 08:00] VITALS: BP 118/78
[2019-05-27 08:31] LABS: ANION GAP 5 mmol/L (5-15); BLOOD UREA NITROGEN 8 mg/dL (7-18); CALCIUM 8.2 MG/DL (8.5-10.1); CARBON DIOXIDE 29 MMOL/L (21-32); CHLORIDE 107 MMOL/L (98-107); CREATININE 0.6 MG/DL (0.55-1.30); POTASSIUM 3.8 MMOL/L (3.5-5.1); SODIUM 140 MMOL/L (136-145)
[2019-05-27] MEDS: Magnesium Oxide 400mg tab ORAL SCH (09:22)
[2019-05-27] MEDS: Aspirin EC 81mg tab ORAL SCH (09:22)
[2019-05-27] MEDS: Vancomycin 750 MG in NS 275 ML IVPB SCH (11:47)
[2019-05-27] MEDS ORDERED: AUGMENTIN 875-1 EAC1 ORAL (11:55)
[2019-05-27] MEDS ORDERED: NORVASC2.5 MG ORAL (11:55)
[2019-05-27] MEDS ORDERED: ASPIRIN EC81 MG ORAL (11:55)
--- NOTE | 2019-05-27 11:56 | Internal Med Progress Note ---
Subjective Date of Service: May 27, 2019 Physician Name Ty Moulton Attending Physician Italo Law MD Current Medications Medications (Trade) Dose Ordered Sig/Surinder Route PRN Reason Start Time Stop Time Status Last Admin Dose Admin Acetaminophen (Tylenol) 650 mg Q6H PRN ORAL Mild Pain/Temp > 100.5 05/22/19 07:00 06/21/19 06:59 05/26/19 08:02 Acetaminophen/ Hydrocodone Bitart ([place] 5/325) 1 tab Q6H PRN ORAL PAIN 4-10 05/22/19 07:00 05/29/19 06:59 05/26/19 21:34 Amlodipine Besylate (Norvasc) 2.5 mg DAILY ORAL 05/23/19 09:00 06/22/19 08:59 05/27/19 09:22 Aspirin (Ecotrin) 81 mg DAILY ORAL 05/23/19 09:00 06/22/19 08:59 05/27/19 09:22 Magnesium Oxide (Mag-Ox 400mg) 400 mg DAILY ORAL 05/23/19 10:30 06/22/19 10:29 05/27/19 09:22 Ondansetron HCl (Zofran) 4 mg Q4H PRN IVP Nausea & Vomiting 05/22/19 07:00 06/21/19 06:59 Temazepam (RestoriL) 7.5 mg HSPRN PRN ORAL Insomnia 05/22/19 15:45 05/29/19 15:44 Vancomycin HCl (Vanco rx to dose) 1 ea DAILY PRN MISC Per rx protocol 05/22/19 07:00 06/21/19 06:59 Vancomycin HCl 750 mg/Sodium Chloride 275 ml @ 184 mls/hr Q12H IVPB 05/23/19 23:00 05/28/19 22:59 05/27/19 11:47 Allergies: Coded Allergies: No Known Allergies (Unverified , 05/21/19) ROS Limited/Unobtainable: No Constitutional: Reports: no symptoms HEENT: Reports: no symptoms Cardiovascular: Reports: no symptoms Respiratory: Reports: no symptoms Gastrointestinal/Abdominal: Reports: no symptoms Genitourinary: Reports: no symptoms Neurologic/Psychiatric: Reports: no symptoms Subjective 69 YO F admitted with left let swelling and redness. Now Cellulitis left leg with ulcer. Cover for Int Med-DR Law. Premature ventricular contractions on monitor Objective Last Vital Signs Date Time Temp Pulse Resp B/P (MAP) Pulse Ox O2 Delivery O2 Flow Rate FiO2 05/27/19 09:22 85 118/78 05/27/19 09:11 Room Air 05/27/19 08:00 97.9 18 95 Laboratory Tests Test 05/27/19 07:11 White Blood Count 3.2 K/UL (4.8-10.8) L Red Blood Count 2.63 M/UL (4.20-5.40) L Hemoglobin 8.5 G/DL (12.0-16.0) L Hematocrit 25.0 % (37.0-47.0) L Mean Corpuscular Volume 95 FL (80-99) Mean Corpuscular Hemoglobin 32.3 PG (27.0-31.0) H Mean Corpuscular Hemoglobin Concent 33.9 G/DL (32.0-36.0) Red Cell Distribution Width 16.6 % (11.6-14.8) H Platelet Count 43 K/UL (150-450) L Mean Platelet Volume 10.9 FL (6.5-10.1) H Neutrophils (%) (Auto) % (45.0-75.0) Lymphocytes (%) (Auto) % (20.0-45.0) Monocytes (%) (Auto) % (1.0-10.0) Eosinophils (%) (Auto) % (0.0-3.0) Basophils (%) (Auto) % (0.0-2.0) Differential Total Cells Counted 100 Neutrophils % (Manual) 68 % (45-75) Lymphocytes % (Manual) 19 % (20-45) L Monocytes % (Manual) 13 % (1-10) H Eosinophils % (Manual) 0 % (0-3) Basophils % (Manual) 0 % (0-2) Band Neutrophils 0 % (0-8) Platelet Estimate Decreased L Platelet Morphology Normal Hypochromasia 1+ Anisocytosis 1+ Sodium Level 140 MMOL/L (136-145) Potassium Level 3.8 MMOL/L (3.5-5.1) Chloride Level 107 MMOL/L (98-107) Carbon Dioxide Level 29 MMOL/L (21-32) Anion Gap 5 mmol/L (5-15) Blood Urea Nitrogen 8 mg/dL (7-18) Creatinine 0.6 MG/DL (0.55-1.30) Estimat Glomerular Filtration Rate > 60 mL/min (>60) Glucose Level 91 MG/DL (74-106) Calcium Level 8.2 MG/DL (8.5-10.1) L Intake and Output 05/26/19 05/27/19 19:00 07:00 Intake Total 480 ml Balance 480 ml Intake Oral 480 ml # Voids 4 2 Objective PHYSICAL EXAMINATION: GENERAL: The patient is awake, responsive, in no acute distress. HEENT: Head and neck examination, pupils are reactive to light. Extraocular movements are intact. NECK: Supple. No JVD. LUNGS: Good air entry. No wheezing or rales. HEART: S1, S2. Distant heart sounds. No murmurs or gallops. ABDOMEN: Soft, nondistended, nontender. Positive bowel sounds. EXTREMITIES: No cyanosis, clubbing, or edema. The patient has left lower extremity redness, ulceration on the medial aspect of the leg. Mild tender to touch around the ulcer. RECTAL: Refused and deferred. GENITOURINARY: Refused and deferred. PSYCHIATRIC: Mood and affect is intact. Assessment/Plan Assessment/Plan ASSESSMENT: 1. Cellulitis of the left lower extremity with ulceration. 2. Hypertension. 3. Abnormal liver functions. 4. Pancytopenia with severe thrombocytopenia. 5. Severe protein-calorie malnutrition. 6. Alcohol dependence/withdrawal 7. Premature ventricular contractions PLAN: 1. Admit the patient to monitored unit. 2. Code status, Full Code. DVT prophylaxis, SCD. 3. antibiotic = vancomycin. Follow 4. GI consultation with = Jeremy Ramos 5. Cardiology consult=Dr Parker. 6. Discharge home today Ty Moulton MD May 27, 2019 11:56
[2019-05-27 12:00] VITALS: BP 120/76
--- NOTE | 2019-05-27 12:49 | Pulmonology Progress Note ---
Assessment/Plan Problems: (1) Cellulitis (2) Coagulopathy (3) Alcoholic liver disease (4) Severe protein-calorie malnutrition (5) Thrombocytopenia (6) Protein calorie malnutrition Assessment/Plan CEA slightly elevated anemia is secondary to ETOH abuse, will give folic acid and B12 all reviewed wound care iv abx anemia w/u Nutrition evaluation stool for OB GI v/u pt/ot pt wants to go home tomorrow Subjective ROS Limited/Unobtainable: No Constitutional: Reports: no symptoms Respiratory: Reports: no symptoms Allergies: Coded Allergies: No Known Allergies (Unverified , 05/21/19) Objective Last 24 Hour Vital Signs Date Time Temp Pulse Resp B/P (MAP) Pulse Ox O2 Delivery O2 Flow Rate FiO2 05/27/19 12:00 97.9 81 18 120/76 (91) 94 05/27/19 09:22 85 118/78 05/27/19 09:11 Room Air 05/27/19 08:00 97.9 85 18 118/78 (91) 95 05/27/19 07:44 79 05/27/19 04:00 79 05/27/19 04:00 98.2 76 16 115/68 (84) 97 05/27/19 00:00 97.7 80 16 138/68 (91) 97 05/26/19 21:00 Room Air 05/26/19 21:00 71 05/26/19 20:00 97.6 96 16 135/72 (93) 95 05/26/19 16:00 96 05/26/19 16:00 97.6 96 16 135/72 (93) 95 Intake and Output 05/26/19 05/27/19 19:00 07:00 Intake Total 480 ml Balance 480 ml Intake Oral 480 ml # Voids 4 2 General Appearance: WD/WN HEENT: atraumatic, anicteric Respiratory/Chest: lungs clear, normal breath sounds Breasts: no masses Cardiovascular: regular rhythm Abdomen: normal bowel sounds, soft, non tender Genitourinary: normal external genitalia 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 Laboratory Tests 05/27/19 07:11: White Blood Count 3.2L, Red Blood Count 2.63L, Hemoglobin 8.5L, Hematocrit 25.0L , Mean Corpuscular Volume 95, Mean Corpuscular Hemoglobin 32.3H, Mean Corpuscular Hemoglobin Concent 33.9, Red Cell Distribution Width 16.6H, Platelet Count 43L, Mean Platelet Volume 10.9H, Neutrophils (%) (Auto) , Lymphocytes (%) (Auto) , Monocytes (%) (Auto) , Eosinophils (%) (Auto) , Basophils (%) (Auto) , Differential Total Cells Counted 100, Neutrophils % ( Manual) 68, Lymphocytes % (Manual) 19L, Monocytes % (Manual) 13H, Eosinophils % (Manual) 0, Basophils % (Manual) 0, Band Neutrophils 0, Platelet Estimate DecreasedL, Platelet Morphology Normal, Hypochromasia 1+, Anisocytosis 1+, Sodium Level 140, Potassium Level 3.8, Chloride Level 107, Carbon Dioxide Level 29, Anion Gap 5, Blood Urea Nitrogen 8, Creatinine 0.6, Estimat Glomerular Filtration Rate > 60, Glucose Level 91, Calcium Level 8.2L Current Medications Medications (Trade) Dose Ordered Sig/Surinder Route PRN Reason Start Time Stop Time Status Last Admin Dose Admin Acetaminophen (Tylenol) 650 mg Q6H PRN ORAL Mild Pain/Temp > 100.5 05/22/19 07:00 06/21/19 06:59 05/26/19 08:02 Acetaminophen/ Hydrocodone Bitart ([place] 5/325) 1 tab Q6H PRN ORAL PAIN 4-10 05/22/19 07:00 05/29/19 06:59 05/26/19 21:34 Amlodipine Besylate (Norvasc) 2.5 mg DAILY ORAL 05/23/19 09:00 06/22/19 08:59 05/27/19 09:22 Aspirin (Ecotrin) 81 mg DAILY ORAL 05/23/19 09:00 06/22/19 08:59 05/27/19 09:22 Magnesium Oxide (Mag-Ox 400mg) 400 mg DAILY ORAL 05/23/19 10:30 06/22/19 10:29 05/27/19 09:22 Ondansetron HCl (Zofran) 4 mg Q4H PRN IVP Nausea & Vomiting 05/22/19 07:00 06/21/19 06:59 Temazepam (RestoriL) 7.5 mg HSPRN PRN ORAL Insomnia 05/22/19 15:45 05/29/19 15:44 Vancomycin HCl (Vanco rx to dose) 1 ea DAILY PRN MISC Per rx protocol 05/22/19 07:00 06/21/19 06:59 Vancomycin HCl 750 mg/Sodium Chloride 275 ml @ 184 mls/hr Q12H IVPB 05/23/19 23:00 05/28/19 22:59 05/27/19 11:47 Dony Chen MD May 27, 2019 12:49
[2019-05-27] MEDS ORDERED: Thiamine HCl 100 MG in D5W 55 ML IVPB SCH (14:00)
[2019-05-27] MEDS ORDERED: Vitamin B12 1000mcg/ml Inj IM SCH (14:00)
--- NOTE | 2019-05-27 15:11 | NUR ---
NURSE NOTES: Called radha to make her aware of discharge. I left message and did call back. She was instructed that discharge will be set for today. Response was that she will be here in less than one hour
--- NOTE | 2019-05-27 15:53 | NUR ---
NURSE NOTES: Pt was picked up by daughter Jess. IV was removed, pt was taken down by wheel chair, pt was given aftercare plan and med recon. Pt was educated on medications prescribed and pt and daughter were able to return education. Pt was taken down lobby and walked to vehicle. Pt signed all belongings and discharge paper work filled out.
[2019-05-27] MEDS ORDERED: NS 275ml ONE (15:55)
[2019-05-27] MEDS ORDERED: Tubing IV Secondary IV ONE (15:55)
--- NOTE | 2019-05-27 21:09 | General Progress Note ---
Assessment/Plan Assessment/Plan: Assessment - pancytopenia - cholelithiasis - fatty liver - abnormal LFT - OB (-) Stools - Hepatitis C positive Recommendations - follow labs - consider Heme evaluation - push po - Outpatient hepatitis C - will Rx as outpt (pt given my info) Subjective Allergies: Coded Allergies: No Known Allergies (Unverified , 05/21/19) Subjective above noted feels ok no abd pain tolerating PO Objective Last 24 Hour Vital Signs Date Time Temp Pulse Resp B/P (MAP) Pulse Ox O2 Delivery O2 Flow Rate FiO2 05/27/19 12:00 97.9 81 18 120/76 (91) 94 05/27/19 11:39 85 05/27/19 09:22 85 118/78 05/27/19 09:11 Room Air 05/27/19 08:00 97.9 85 18 118/78 (91) 95 05/27/19 07:44 79 05/27/19 04:00 79 05/27/19 04:00 98.2 76 16 115/68 (84) 97 05/27/19 00:00 97.7 80 16 138/68 (91) 97 Intake and Output 05/26/19 05/27/19 19:00 07:00 Intake Total 480 ml Balance 480 ml Intake Oral 480 ml # Voids 4 2 Laboratory Tests 05/27/19 07:11: White Blood Count 3.2L, Red Blood Count 2.63L, Hemoglobin 8.5L, Hematocrit 25.0L , Mean Corpuscular Volume 95, Mean Corpuscular Hemoglobin 32.3H, Mean Corpuscular Hemoglobin Concent 33.9, Red Cell Distribution Width 16.6H, Platelet Count 43L, Mean Platelet Volume 10.9H, Neutrophils (%) (Auto) , Lymphocytes (%) (Auto) , Monocytes (%) (Auto) , Eosinophils (%) (Auto) , Basophils (%) (Auto) , Differential Total Cells Counted 100, Neutrophils % ( Manual) 68, Lymphocytes % (Manual) 19L, Monocytes % (Manual) 13H, Eosinophils % (Manual) 0, Basophils % (Manual) 0, Band Neutrophils 0, Platelet Estimate DecreasedL, Platelet Morphology Normal, Hypochromasia 1+, Anisocytosis 1+, Sodium Level 140, Potassium Level 3.8, Chloride Level 107, Carbon Dioxide Level 29, Anion Gap 5, Blood Urea Nitrogen 8, Creatinine 0.6, Estimat Glomerular Filtration Rate > 60, Glucose Level 91, Calcium Level 8.2L Height (Feet): 5 Height (Inches): 0.00 Weight (Pounds): 113 Objective WDWN AA woman NCAT supple CTA RR abd soft ND NT (+) Left leg wound Jeremy Ramos MD May 27, 2019 21:08
--- NOTE | 2019-05-28 11:32 | Discharge Summary ---
Discharge Summary Discharge Summary _ DATE OF ADMISSION: 05/21/2019 DATE OF DISCHARGE: 05/27/2019 DISCHARGED BY: Dr. Law REASON FOR ADMISSION: 69 years old female with past medical history significant for hypertension, ETOH use, presented to emergency department with complaint of left lower extremity infected ulcer. Patient reported that she struck her foot while walking in the kitchen . Subsequently the leg became red and tender. Patient was able to walk , but had difficulty with ambulation. Shortly after initial evaluation in emergency room patient was admitted to the hospital with acute cellulitis of left lower extremity. CONSULTANTS: machine sole leveler Dr. Parker pulmonary Dr. Chen GI specialist Dr. De La Cruz [facility] COURSE: Patient admitted to monitored floor. Patient started on empiric antibiotics. Chest x-ray revealed no acute cardiopulmonary pathology. Venous duplex bilateral lower extremity revealed no evidence of acute DVT. Blood cultures were negative. Wound culture revealed Staph coagulase negative and diphtheroids. Patient was leukopenic and afebrile. Upon discharge, antibiotic changed to oral. Patient will need to continue oral antibiotic upon discharge to complete the course. Pain management was addressed. Anemia work-up revealed evidence of anemia of chronic disease. Stable B12 and folate. CEA minimally elevated 5.5. Stool for occult blood negative. Hepatitis panel revealed evidence of hepatitis C. Thrombocytopenia and leukopenia were most likely due to hepatitis C. Counts were closely monitored, prior to discharge hemoglobin 8.5, hematocrit 25 , platelet count 43 and WBC 3.2 ; all improved from initial presentation. Urine toxicology screen was negative. Anemia of chronic disease was likely due to ETOH abuse. Patient started on folic acid and thiamine . Patient was counseled on abstinence from ETOH. Serum alcohol level at this time was 10. Abdominal ultrasound demonstrated dense liver, likely fatty liver. Gallbladder with sludge and stones. No acute cholecystitis. Patient was recommended to have outpatient hepatitis C treatment. Patient received information how to contact a GI specialist upon discharge. Oral fluids were pushed. Patient was able to tolerate diet. Total and direct bilirubin trending down , still elevated . AST and ALT remained normal. Fall precautions maintained. Patient was working with physical therapist. Dietary recommendation implemented in plan of care Patient clinically stabilized and was ready for discharge home. Patient to follow-up with a primary care provider in 1 week . Patient was recommended to follow-up with a GI specialist for hepatitis C treatment. Monitor counts as outpatient, may consider hematology evaluation , if no significant improvement. Patient was cancelled on abstinence from ETOH. FINAL DIAGNOSES: Cellulitis left lower extremity with ulceration Hypertension Pancytopenia with severe thrombocytopenia Protein calorie malnutrition Hypertension Cholelithiasis Fatty liver Abnormal LFT Hepatitis C positive Alcoholic liver disease Coagulopathy DISCHARGE MEDICATIONS: See Medication Reconciliation list. DISCHARGE INSTRUCTIONS: Patient was discharged home. Follow-up with a primary care provider in 1 week. Follow-up with a GI specialist for outpatient hepatitis C treatment I have been assigned to dictate discharge summary for this account. I was not involved in the patient's management. Sera Ya NP May 28, 2019 11:32
== END 2019-05-27 15:56 | disposition home or self-care (01) | DRG 602 ==
LOC: EMR 22:00 → 2E 22:20 → EDBEDREQ 05-22 00:38
DX: L03.116 Cellulitis of left lower limb (principal); E43 Unspecified severe protein-calorie malnutrition; D61.818 Other pancytopenia; D68.9 Coagulation defect, unspecified; F10.239 Alcohol dependence with withdrawal, unspecified; L97.529 Non-pressure chronic ulcer of other part of left foot with unspecified severity; I10 Essential (primary) hypertension; D69.6 Thrombocytopenia, unspecified; Z79.82 Long term (current) use of aspirin; K70.9 Alcoholic liver disease, unspecified; K76.0 Fatty (change of) liver, not elsewhere classified; K80.80 Other cholelithiasis without obstruction; I49.3 Ventricular premature depolarization; Z68.22 Body mass index [BMI] 22.0-22.9, adult; D63.8 Anemia in other chronic diseases classified elsewhere
CPT/HCPCS: 36415; 71045; 76700; 80048; 80053; 80202; 80307; 81003; 82248; 82270; 82378; 82550; 82553; 82607; 82746; 83540; 83550; 83605; 83615; 83690; 83735; 83880; 84100; 84484; 85007; 85025; 85044; 85060; 85610; 85651; 85730; 86705; 86709; 86803; 87040; 87070; 87205; 87340; 93005; 93306; 93970; 96361; 96365; 96367; 96368; 96372; 99285; G0480; J7030